=== PATIENT | male | born 1990 | race Caucasian/White ===

== ENCOUNTER 2022-04-25 21:11 | Inpatient (IN) | payer MEDICAID, OTHER ==
[~2022-04-25] VITALS: Ht 177.8 cm; Wt 122.9 kg
[2022-04-25] MEDS ORDERED: ONDANSETRON HCL 4 MG TABLET PO ONE (21:30)
[2022-04-25 21:42] LABS: BASOPHILS % (AUTO) 0.9 % (0.0-2.0); EOSINOPHILS % (AUTO) 2.8 % (1.0-6.0); HEMATOCRIT 37.2 % (41-53); HEMOGLOBIN 12.3 g/dL (13.5-17.5); LYMPHOCYTES # (AUTO) 0.6 K/uL (1.0-4.8); LYMPHOCYTES % (AUTO) 11.1 % (22.0-44.0); MEAN CORPUSCULAR HEMOGLOBIN 28.8 pg (26.0-34.0); MEAN CORPUSCULAR HGB CONC 33.2 G/dL (31.0-37.0); MEAN CORPUSCULAR VOLUME 87 fL (80-100); MONOCYTES # (AUTO) 0.4 K/uL (0.1-1.0); MONOCYTES % (AUTO) 7.2 % (2.0-9.0); NEUTROPHILS # (AUTO) 4.1 K/uL (1.8-7.7); PLATELET COUNT (AUTO) 133 K/uL (150-450); RED BLOOD CELL COUNT(AUTO) 4.29 MIL/uL (4.50-5.90); RED CELL DISTRIBUTION WIDTH 16.1 % (11.5-14.5)
[2022-04-25 21:52] LABS: ANION GAP 10 mmol/L (8-16); CALCIUM, TOTAL 8.9 mg/dL (8.8-10.5); CARBON DIOXIDE 24 mmol/L (22-29); CHLORIDE 106 mmol/L (98-107); CREATININE 0.54 mg/dL (0.60-1.30); GLOMERULAR FILTR. RATE CALC > 60 mL/min (>60); GLUCOSE,RANDOM 109 mg/dL (70-110); POTASSIUM 3.5 mmol/L (3.5-5.1); SODIUM SERUM 140 mmol/L (136-145); UREA NITROGEN, BLOOD 5 mg/dL (7-18)
[2022-04-25 21:58] LABS: ALANINE AMINOTRANSFERASE 36 U/L (12-78); ALBUMIN 3.5 g/dL (3.4-5.0); ALKALINE PHOSPHATASE 80 U/L (46-116); ASPARTATE AMINOTRANSFERASE 56 U/L (15-37); BILIRUBIN,TOTAL 0.8 mg/dL (0.1-1.0); TOTAL PROTEIN, SERUM 7.4 g/dL (6.4-8.2)
[2022-04-25 22:12] LABS: COVID AG,FIA SOURCE NASOPHARYNGEAL
[2022-04-25] MEDS ORDERED: RisperiDONE 1 MG TABLET PO ONE (23:15)
[2022-04-25] MEDS ORDERED: LORazepam 2 MG TABLET PO PRN (23:45)
[2022-04-25] MEDS ORDERED: HALOPERIDOL 5 MG TABLET PO PRN (23:45)
[2022-04-26] VITALS (9 sets, daily range): BP systolic 105–157; BP diastolic 55–89
[2022-04-26] MEDS: ZOLPIDEM TARTRATE 10 MG TABLET PO PRN ×2 (02:40→23:43)
[2022-04-26] MEDS ORDERED: GuaiFENesin/D-METHORPHAN [SUGAR-FREE] 200-20MG/10 ML SYRUP UDCUP PO PRN ×2 (07:45→11:00)
[2022-04-26] MEDS ORDERED: PETROLATUM,WHITE 28 GM JELLY TP PRN (07:45)
[2022-04-26] MEDS ORDERED: IBUPROFEN 400 MG TABLET PO PRN (07:45)
[2022-04-26] MEDS ORDERED: MAGNESIUM HYDROXIDE SUSPENSION 30 ML UDCUP PO PRN (07:45)
[2022-04-26] MEDS ORDERED: LOPERAMIDE HCL 2 MG CAPSULE PO PRN (07:45)
[2022-04-26] MEDS ORDERED: ACETAMINOPHEN 325 MG TABLET PO PRN (07:45)
[2022-04-26] MEDS ORDERED: ALBUTEROL SULFATE HFA 90 MCG/PUFF 8 GM INHALER IH PRN (07:45)
[2022-04-26] MEDS ORDERED: MAG HYDROX/AL HYDROX/SIMETH ES 30 ML SUSPENSION UDCUP PO PRN (07:45)
[2022-04-26] MEDS ORDERED: ONDANSETRON HCL 4 MG TABLET PO PRN (07:45)
[2022-04-26] MEDS ORDERED: DOCUSATE SODIUM 100 MG CAPSULE PO PRN (07:45)
[2022-04-26] MEDS ORDERED: NICOTINE 14 MG/24 HOUR PATCH TD PRN (07:45)
[2022-04-26] MEDS ORDERED: CloNIDine HCL 0.1 MG TABLET PO PRN (07:45)
[2022-04-26] MEDS ORDERED: RISP2TAB45 PO (10:57)
[2022-04-26] MEDS ORDERED: SERT-440 PO (10:57)
[2022-04-26] MEDS ORDERED: CYANOCOBALAMIN 1,000 MCG/ML VIAL IM ONE (11:00)
[2022-04-26] MEDS ORDERED: LORazepam 2 MG TABLET PO PRN (11:00)
[2022-04-26] MEDS ORDERED: HydrOXYzine PAMOATE 50 MG CAPSULE PO PRN (11:00)
[2022-04-26] MEDS: FOLIC ACID 1 MG TABLET PO SCH (12:07)
[2022-04-26] MEDS: MULTIVITAMINS WITH MINERALS, THERAPEUTIC TABLET PO SCH (12:07)
[2022-04-26] MEDS: SERTRALINE HCL 100 MG TABLET PO SCH (12:07)
[2022-04-26] MEDS: TRIAMCINOLONE 0.1% 15 GM CREAM TP SCH (12:53)
[2022-04-26] MEDS: THIAMINE 100 MG TABLET PO SCH (16:13)
[2022-04-26] MEDS: RisperiDONE 2 MG TABLET PO SCH (20:07)
[2022-04-27 02:00] VITALS: BP 144/84
[2022-04-27 06:10] VITALS: BP 144/85
[2022-04-27] MEDS ORDERED: LORazepam 2 MG TABLET PO PRN (07:00)
[2022-04-27 08:52] VITALS: BP 139/75
[2022-04-27] MEDS: LORazepam 2 MG TABLET PO SCH ×4 (08:58→20:19)
[2022-04-27] MEDS: FOLIC ACID 1 MG TABLET PO SCH (08:58)
[2022-04-27] MEDS: THIAMINE 100 MG TABLET PO SCH ×2 (08:59→16:27)
[2022-04-27] MEDS: TRIAMCINOLONE 0.1% 15 GM CREAM TP SCH (08:59)
[2022-04-27] MEDS: SERTRALINE HCL 100 MG TABLET PO SCH (08:59)
[2022-04-27] MEDS: MULTIVITAMINS WITH MINERALS, THERAPEUTIC TABLET PO SCH (08:59)
[2022-04-27 16:30] VITALS: BP 137/75
[2022-04-27] MEDS: RisperiDONE 2 MG TABLET PO SCH (20:19)
[2022-04-27 20:37] VITALS: BP 151/75
[2022-04-27 21:08] VITALS: BP 151/75
[2022-04-28] MEDS: FOLIC ACID 1 MG TABLET PO SCH (08:13)
[2022-04-28] MEDS: SERTRALINE HCL 100 MG TABLET PO SCH (08:13)
[2022-04-28] MEDS: MULTIVITAMINS WITH MINERALS, THERAPEUTIC TABLET PO SCH (08:13)
[2022-04-28] MEDS: LORazepam 2 MG TABLET PO SCH ×2 (08:13→12:28)
[2022-04-28] MEDS: THIAMINE 100 MG TABLET PO SCH (08:13)
[2022-04-28] MEDS: TRIAMCINOLONE 0.1% 15 GM CREAM TP SCH (08:13)
[2022-04-28 08:26] VITALS: BP 121/79
[2022-04-28] MEDS ORDERED: DENTAL PASTE DT PRN (09:45)
[2022-04-28] MEDS ORDERED: TRIAMCINOLONE 0.1% DT PRN (09:45)
[2022-04-28] MEDS ORDERED: RISP2TAB86 PO (11:47)
[2022-04-28] MEDS ORDERED: SERT-440 PO (11:47)
[2022-04-29] MEDS ORDERED: LORazepam 1 MG TABLET PO PRN (07:00)
[2022-04-29] MEDS ORDERED: LORazepam 1 MG TABLET PO SCH (09:00)
[2022-04-30] MEDS ORDERED: LORazepam 1 MG TABLET PO PRN (07:00)
== END 2022-04-28 15:59 | disposition home or self-care (01) | DRG 750 ==
LOC: EMS 21:15 → B2S 04-26 01:04
PROVIDERS: ADMIT Psychiatry & Neurology Psychiatry; ATTEND Psychiatry & Neurology Psychiatry
DX: F25.1 Schizoaffective disorder, depressive type (principal); K57.92 Diverticulitis of intestine, part unspecified, without perforation or abscess without bleeding; K70.30 Alcoholic cirrhosis of liver without ascites; Z20.822 Contact with and (suspected) exposure to COVID-19; F12.10 Cannabis abuse, uncomplicated; L40.9 Psoriasis, unspecified; D64.9 Anemia, unspecified; F17.210 Nicotine dependence, cigarettes, uncomplicated; F10.10 Alcohol abuse, uncomplicated; Y90.9 Presence of alcohol in blood, level not specified; F19.10 Other psychoactive substance abuse, uncomplicated; Z71.6 Tobacco abuse counseling
CPT/HCPCS: 80053; 85025; 87081; 99285; G0480; J3420; Q0162

== ENCOUNTER 2022-05-12 21:14 | Inpatient (IN) | payer MEDICAID ==
[~2022-05-12] VITALS: Ht 177.8 cm; Wt 121.8 kg
[~2022-05-12 21:14] MED LIST: RISP2TAB86 PO; SERT-440 PO
[2022-05-13] MEDS ORDERED: LORazepam 2 MG TABLET PO PRN ×2 (00:15→07:00)
[2022-05-13 00:23] LABS: BASOPHILS % (AUTO) 1.3 % (0.0-2.0); EOSINOPHILS % (AUTO) 3.4 % (1.0-6.0); HEMATOCRIT 40.3 % (41-53); HEMOGLOBIN 13.4 g/dL (13.5-17.5); LYMPHOCYTES # (AUTO) 1.2 K/uL (1.0-4.8); LYMPHOCYTES % (AUTO) 16.3 % (22.0-44.0); MEAN CORPUSCULAR HEMOGLOBIN 28.5 pg (26.0-34.0); MEAN CORPUSCULAR HGB CONC 33.2 G/dL (31.0-37.0); MEAN CORPUSCULAR VOLUME 86 fL (80-100); MONOCYTES # (AUTO) 0.6 K/uL (0.1-1.0); MONOCYTES % (AUTO) 8.2 % (2.0-9.0); NEUTROPHILS # (AUTO) 5.3 K/uL (1.8-7.7); NEUTROPHILS % (AUTO) 70.8 % (40.0-70.0); PLATELET COUNT (AUTO) 146 K/uL (150-450); RED BLOOD CELL COUNT(AUTO) 4.69 MIL/uL (4.50-5.90); RED CELL DISTRIBUTION WIDTH 16.4 % (11.5-14.5)
[2022-05-13 00:35] LABS: ANION GAP 14 mmol/L (8-16); CALCIUM, TOTAL 9.1 mg/dL (8.8-10.5); CARBON DIOXIDE 24 mmol/L (22-29); CHLORIDE 104 mmol/L (98-107); CREATININE 0.59 mg/dL (0.60-1.30); GLUCOSE,RANDOM 112 mg/dL (70-110); POTASSIUM 3.3 mmol/L (3.5-5.1); SODIUM SERUM 142 mmol/L (136-145); UREA NITROGEN, BLOOD 4 mg/dL (7-18)
[2022-05-13 00:41] LABS: GLOMERULAR FILTR. RATE CALC > 60 mL/min (>60)
[2022-05-13 00:47] LABS: COVID AG,FIA SOURCE NASAL SWAB
[2022-05-13 00:52] LABS: ALANINE AMINOTRANSFERASE 46 U/L (12-78); ALBUMIN 3.8 g/dL (3.4-5.0); ALKALINE PHOSPHATASE 103 U/L (46-116); ASPARTATE AMINOTRANSFERASE 70 U/L (15-37); BILIRUBIN,TOTAL 0.9 mg/dL (0.1-1.0); TOTAL PROTEIN, SERUM 7.8 g/dL (6.4-8.2)
[2022-05-13] MEDS ORDERED: POTASSIUM CHLORIDE 20 MEQ ER TABLET PO ONE (01:15)
[2022-05-13 01:30] LABS: APPEARANCE,URINE CLEAR (CLEAR); BILIRUBIN,URINE NEGATIVE (NEGATIVE); GLUCOSE, URINE (UA) NEGATIVE (NEGATIVE); KETONES,URINE NEGATIVE (NEGATIVE); LEUKOCYTE ESTERASE ,URINE TRACE (NEGATIVE); NITRATE,URINE NEGATIVE (NEGATIVE); OCCULT BLOOD,URINE NEGATIVE (NEGATIVE); PH,URINE 7.5 (5.0-8.0); PROTEIN,URINE NEGATIVE (NEGATIVE); SPECIFIC GRAVITIY, URINE 1.009 (1.003-1.030); UROBILINOGEN,URINE <=1.0 mg/dL (<=1.0)
[2022-05-13 01:37] LABS: AMPHET/METH SCREEN,URINE NEGATIVE (NEGATIVE); BARBITURATE SCREEN, URINE NEGATIVE (NEGATIVE); BENZODIAZEPINES SCREEN,URINE POSITIVE (NEGATIVE); CANNABINOID SCREEN,URINE POSITIVE (NEGATIVE); COCAINE SCREEN,URINE NEGATIVE (NEGATIVE); METHADONE SCREEN, URINE NEGATIVE (NEGATIVE); OPIATE SCREEN,URINE NEGATIVE (NEGATIVE)
[2022-05-13 01:48] LABS: PHENCYCLIDINE SCREEN,URINE NEGATIVE (NEGATIVE)
[2022-05-13 02:18] LABS: BACTERIA,URINE None Seen /HPF (None Seen); RBC,URINE None Seen /HPF (0-2); SQUAMOUS EPITHELIAL CELL,UR Few /LPF (None Seen); WBC,URINE 0-2 /HPF (0-5)
[2022-05-13 02:58] VITALS: BP 140/50
[2022-05-13 03:17] VITALS: BP 140/50
[2022-05-13] MEDS ORDERED: GuaiFENesin/D-METHORPHAN [SUGAR-FREE] 200-20MG/10 ML SYRUP UDCUP PO PRN (06:15)
[2022-05-13] MEDS ORDERED: ALBUTEROL SULFATE HFA 90 MCG/PUFF 8 GM INHALER IH PRN (06:15)
[2022-05-13] MEDS ORDERED: ONDANSETRON HCL 4 MG TABLET PO PRN (06:15)
[2022-05-13] MEDS ORDERED: MAGNESIUM HYDROXIDE SUSPENSION 30 ML UDCUP PO PRN (06:15)
[2022-05-13] MEDS ORDERED: PETROLATUM,WHITE 28 GM JELLY TP PRN (06:15)
[2022-05-13] MEDS ORDERED: CloNIDine HCL 0.1 MG TABLET PO PRN (06:15)
[2022-05-13] MEDS ORDERED: LOPERAMIDE HCL 2 MG CAPSULE PO PRN (06:15)
[2022-05-13] MEDS ORDERED: DOCUSATE SODIUM 100 MG CAPSULE PO PRN (06:15)
[2022-05-13] MEDS ORDERED: NICOTINE 14 MG/24 HOUR PATCH TD PRN (06:15)
[2022-05-13] MEDS ORDERED: ACETAMINOPHEN 325 MG TABLET PO PRN (06:15)
[2022-05-13] MEDS ORDERED: MAG HYDROX/AL HYDROX/SIMETH ES 30 ML SUSPENSION UDCUP PO PRN (06:15)
[2022-05-13] MEDS: LORazepam 2 MG TABLET PO SCH ×5 (09:00→20:45)
[2022-05-13 09:01] VITALS: BP 157/91
[2022-05-13] MEDS: SERTRALINE HCL 50 MG TABLET PO SCH ×2 (11:42→16:32)
[2022-05-13] MEDS: RisperiDONE 2 MG TABLET PO SCH (11:42)
[2022-05-13 16:20] VITALS: BP 134/81
[2022-05-13] MEDS: HALOPERIDOL 5 MG TABLET PO PRN (20:45)
[2022-05-14 08:00] VITALS: BP 166/96
[2022-05-14] MEDS: SERTRALINE HCL 50 MG TABLET PO SCH ×2 (08:51→17:05)
[2022-05-14] MEDS: FOLIC ACID 1 MG TABLET PO SCH (08:51)
[2022-05-14] MEDS: MULTIVITAMINS, THERAPEUTIC TABLET PO SCH (08:51)
[2022-05-14] MEDS: THIAMINE 100 MG TABLET PO SCH (08:51)
[2022-05-14] MEDS: RisperiDONE 2 MG TABLET PO SCH (08:51)
[2022-05-14] MEDS: LORazepam 2 MG TABLET PO SCH ×4 (08:52→20:31)
[2022-05-14 16:00] VITALS: BP 126/68
[2022-05-14] MEDS: ZOLPIDEM TARTRATE 10 MG TABLET PO PRN (23:08)
[2022-05-14] MEDS: HYDROCORTISONE 1% 30 GM OINTMENT TP PRN (23:14)
[2022-05-15] MEDS ORDERED: LORazepam 1 MG TABLET PO PRN (07:00)
[2022-05-15] MEDS: PredniSONE 20 MG TABLET PO SCH (09:24)
[2022-05-15] MEDS: FOLIC ACID 1 MG TABLET PO SCH (09:24)
[2022-05-15] MEDS: LORazepam 1 MG TABLET PO SCH ×4 (09:24→20:38)
[2022-05-15] MEDS: SERTRALINE HCL 50 MG TABLET PO SCH ×2 (09:24→16:48)
[2022-05-15] MEDS: RisperiDONE 2 MG TABLET PO SCH (09:24)
[2022-05-15] MEDS: THIAMINE 100 MG TABLET PO SCH (09:24)
[2022-05-15] MEDS: MULTIVITAMINS, THERAPEUTIC TABLET PO SCH (09:24)
[2022-05-15 09:32] VITALS: BP 152/85
[2022-05-15] MEDS: IBUPROFEN 400 MG TABLET PO PRN ×2 (09:35→20:52)
[2022-05-15] MEDS: HYDROCORTISONE 1% 30 GM OINTMENT TP PRN (09:35)
[2022-05-15 16:00] VITALS: BP 125/68
[2022-05-15 20:26] VITALS: BP 121/60
[2022-05-15] MEDS: ZOLPIDEM TARTRATE 10 MG TABLET PO PRN (23:52)
[2022-05-16] MEDS: HALOPERIDOL 5 MG TABLET PO PRN (01:08)
[2022-05-16] MEDS ORDERED: LORazepam 1 MG TABLET PO PRN (07:00)
[2022-05-16 08:00] VITALS: BP 132/82
[2022-05-16] MEDS: SERTRALINE HCL 50 MG TABLET PO SCH ×2 (08:25→16:40)
[2022-05-16] MEDS: MULTIVITAMINS, THERAPEUTIC TABLET PO SCH (08:25)
[2022-05-16] MEDS: PredniSONE 20 MG TABLET PO SCH (08:25)
[2022-05-16] MEDS: RisperiDONE 2 MG TABLET PO SCH (08:25)
[2022-05-16] MEDS: THIAMINE 100 MG TABLET PO SCH (08:25)
[2022-05-16] MEDS: FOLIC ACID 1 MG TABLET PO SCH (08:26)
[2022-05-16 16:00] VITALS: BP 141/82
[2022-05-16 20:52] VITALS: BP 138/74
[2022-05-16] MEDS: ZOLPIDEM TARTRATE 10 MG TABLET PO PRN (22:40)
[2022-05-17 09:00] VITALS: BP 134/81
[2022-05-17] MEDS: THIAMINE 100 MG TABLET PO SCH (09:21)
[2022-05-17] MEDS: MULTIVITAMINS, THERAPEUTIC TABLET PO SCH (09:22)
[2022-05-17] MEDS: RisperiDONE 2 MG TABLET PO SCH (09:22)
[2022-05-17] MEDS: FOLIC ACID 1 MG TABLET PO SCH (09:22)
[2022-05-17] MEDS: PredniSONE 20 MG TABLET PO SCH (09:22)
[2022-05-17] MEDS: SERTRALINE HCL 50 MG TABLET PO SCH (09:22)
[2022-05-17] MEDS ORDERED: RISP2TAB86 PO (10:46)
[2022-05-17] MEDS ORDERED: SERT-439 PO (10:46)
[2022-05-17] MEDS ORDERED: MUPIROCIN CALCIUM 2% 22 GM OINTMENT NASAL SCH (11:00)
== END 2022-05-17 14:08 | disposition home or self-care (01) | DRG 751 ==
LOC: EMS 22:04 → 3EI 05-13 01:51
PROVIDERS: ADMIT Psychiatry & Neurology Child & Adolescent Psychiatry; ATTEND Psychiatry & Neurology Child & Adolescent Psychiatry
DX: F33.2 Major depressive disorder, recurrent severe without psychotic features (principal); K74.60 Unspecified cirrhosis of liver; R45.851 Suicidal ideations; K57.92 Diverticulitis of intestine, part unspecified, without perforation or abscess without bleeding; Z20.822 Contact with and (suspected) exposure to COVID-19; L40.9 Psoriasis, unspecified; E87.6 Hypokalemia; F10.10 Alcohol abuse, uncomplicated; Y90.9 Presence of alcohol in blood, level not specified; F20.9 Schizophrenia, unspecified; D64.9 Anemia, unspecified; F19.10 Other psychoactive substance abuse, uncomplicated; F12.10 Cannabis abuse, uncomplicated; R45.850 Homicidal ideations; Z87.891 Personal history of nicotine dependence; Z91.14 Patient's other noncompliance with medication regimen
CPT/HCPCS: 80053; 81001; 83036; 84132; 85025; 87081; 99285; G0480

== ENCOUNTER 2022-05-25 23:36 | Inpatient (IN) | payer MEDICAID, OTHER ==
[~2022-05-25] VITALS: Ht 177.8 cm; Wt 122.5 kg
[~2022-05-25 23:36] MED LIST changes: +SERT-439 PO
[2022-05-26] MEDS ORDERED: BACITRACIN 28 GM OINTMENT TP ONE (01:15)
[2022-05-26] MEDS ORDERED: PERTUSS(ACELL),DIPH,TET VAC/PF 0.5 ML SYRINGE IM. ONE (01:15)
[2022-05-26 01:44] LABS: ANION GAP 11 mmol/L (8-16); BASOPHILS % (AUTO) 0.9 % (0.0-2.0); CALCIUM, TOTAL 8.3 mg/dL (8.8-10.5); CARBON DIOXIDE 24 mmol/L (22-29); CHLORIDE 107 mmol/L (98-107); CREATININE 0.73 mg/dL (0.60-1.30); EOSINOPHILS % (AUTO) 3.4 % (1.0-6.0); GLUCOSE,RANDOM 99 mg/dL (70-110); HEMATOCRIT 40.6 % (41-53); HEMOGLOBIN 13.5 g/dL (13.5-17.5); LYMPHOCYTES # (AUTO) 1.4 K/uL (1.0-4.8); LYMPHOCYTES % (AUTO) 15.9 % (22.0-44.0); MEAN CORPUSCULAR HEMOGLOBIN 28.6 pg (26.0-34.0); MEAN CORPUSCULAR HGB CONC 33.3 G/dL (31.0-37.0); MEAN CORPUSCULAR VOLUME 86 fL (80-100); MONOCYTES # (AUTO) 0.7 K/uL (0.1-1.0); MONOCYTES % (AUTO) 8.1 % (2.0-9.0); NEUTROPHILS # (AUTO) 6.5 K/uL (1.8-7.7); NEUTROPHILS % (AUTO) 71.7 % (40.0-70.0); PLATELET COUNT (AUTO) 152 K/uL (150-450); POTASSIUM 3.2 mmol/L (3.5-5.1); RED BLOOD CELL COUNT(AUTO) 4.72 MIL/uL (4.50-5.90); RED CELL DISTRIBUTION WIDTH 17.5 % (11.5-14.5); SODIUM SERUM 142 mmol/L (136-145); UREA NITROGEN, BLOOD 1 mg/dL (7-18)
[2022-05-26 01:47] LABS: GLOMERULAR FILTR. RATE CALC > 60 mL/min (>60)
[2022-05-26 01:49] LABS: ALANINE AMINOTRANSFERASE 34 U/L (12-78); ALBUMIN 3.7 g/dL (3.4-5.0); ALKALINE PHOSPHATASE 80 U/L (46-116); ASPARTATE AMINOTRANSFERASE 31 U/L (15-37); BILIRUBIN,TOTAL 0.7 mg/dL (0.1-1.0); TOTAL PROTEIN, SERUM 7.8 g/dL (6.4-8.2)
[2022-05-26] MEDS ORDERED: LORazepam 1 MG TABLET PO ONE (02:00)
[2022-05-26] MEDS ORDERED: RisperiDONE 1 MG TABLET PO ONE (02:00)
[2022-05-26] MEDS ORDERED: HALOPERIDOL 5 MG TABLET PO PRN (03:45)
[2022-05-26] MEDS ORDERED: POTASSIUM CHLORIDE 20 MEQ ER TABLET PO ONE (04:00)
[2022-05-26 04:07] LABS: COVID AG,FIA SOURCE NASOPHARYNGEAL
[2022-05-26 05:31] VITALS: BP 129/80
[2022-05-26] MEDS: NICOTINE 14 MG/24 HOUR PATCH TD SCH (09:29)
[2022-05-26] MEDS: RisperiDONE 2 MG TABLET PO SCH (13:28)
[2022-05-26] MEDS: SERTRALINE HCL 50 MG TABLET PO SCH (13:29)
[2022-05-26] MEDS ORDERED: LOPERAMIDE HCL 2 MG CAPSULE PO PRN (14:00)
[2022-05-26] MEDS ORDERED: GuaiFENesin/D-METHORPHAN [SUGAR-FREE] 200-20MG/10 ML SYRUP UDCUP PO PRN (14:00)
[2022-05-26] MEDS ORDERED: ACETAMINOPHEN 325 MG TABLET PO PRN (14:00)
[2022-05-26] MEDS ORDERED: DOCUSATE SODIUM 100 MG CAPSULE PO PRN (14:00)
[2022-05-26] MEDS ORDERED: NICOTINE 14 MG/24 HOUR PATCH TD PRN (14:00)
[2022-05-26] MEDS ORDERED: PETROLATUM,WHITE 28 GM JELLY TP PRN (14:00)
[2022-05-26] MEDS ORDERED: ONDANSETRON HCL 4 MG TABLET PO PRN (14:00)
[2022-05-26] MEDS ORDERED: MAGNESIUM HYDROXIDE SUSPENSION 30 ML UDCUP PO PRN (14:00)
[2022-05-26] MEDS ORDERED: CloNIDine HCL 0.1 MG TABLET PO PRN (14:00)
[2022-05-26] MEDS ORDERED: ALBUTEROL SULFATE HFA 90 MCG/PUFF 8 GM INHALER IH PRN (14:00)
[2022-05-26] MEDS ORDERED: MAG HYDROX/AL HYDROX/SIMETH ES 30 ML SUSPENSION UDCUP PO PRN (14:00)
[2022-05-26 17:01] VITALS: BP 117/71
[2022-05-26] MEDS: ZOLPIDEM TARTRATE 10 MG TABLET PO PRN (23:26)
[2022-05-27 07:50] LABS: BASOPHILS % (AUTO) 2.1 % (0.0-2.0); EOSINOPHILS % (AUTO) 4.9 % (1.0-6.0); HEMATOCRIT 38.4 % (41-53); LYMPHOCYTES # (AUTO) 1.1 K/uL (1.0-4.8); MEAN CORPUSCULAR HEMOGLOBIN 28.8 pg (26.0-34.0); MEAN CORPUSCULAR HGB CONC 33.7 G/dL (31.0-37.0); MEAN CORPUSCULAR VOLUME 85 fL (80-100); MONOCYTES # (AUTO) 0.6 K/uL (0.1-1.0); PLATELET COUNT (AUTO) 133 K/uL (150-450)
[2022-05-27 08:26] LABS: ALANINE AMINOTRANSFERASE 26 U/L (12-78); ALBUMIN 3.4 g/dL (3.4-5.0); ALKALINE PHOSPHATASE 73 U/L (46-116); ANION GAP 9 mmol/L (8-16); ASPARTATE AMINOTRANSFERASE 28 U/L (15-37); BILIRUBIN,TOTAL 1.2 mg/dL (0.1-1.0); CARBON DIOXIDE 25 mmol/L (22-29); CHLORIDE 105 mmol/L (98-107); CHOL/HDL RATIO 3.8 (4.2-7.3); CHOLESTEROL 147 mg/dL (131-200); CREATININE 0.75 mg/dL (0.60-1.30); GLUCOSE,RANDOM 110 mg/dL (70-110); HDL CHOLESTEROL 39 mg/dL (40-60); LDL CHOL (CALC.) 82 mg/dL (0-130); POTASSIUM 3.5 mmol/L (3.5-5.1); SODIUM SERUM 139 mmol/L (136-145); THYROID STIMULATING HORMONE 3.39 uIU/mL (0.36-3.74); TRIGLYCERIDES 129 mg/dL (15-150); UREA NITROGEN, BLOOD 7 mg/dL (7-18)
[2022-05-27 08:30] VITALS: BP 133/76
[2022-05-27 08:33] LABS: GLOMERULAR FILTR. RATE CALC > 60 mL/min (>60)
[2022-05-27 08:40] LABS: HEMOGLOBIN A1C 5.2 % (3.8-5.6)
[2022-05-27] MEDS: SERTRALINE HCL 50 MG TABLET PO SCH (09:00)
[2022-05-27] MEDS: RisperiDONE 2 MG TABLET PO SCH (09:00)
[2022-05-27] MEDS: NICOTINE 14 MG/24 HOUR PATCH TD SCH (09:04)
[2022-05-27 16:24] VITALS: BP 159/93
[2022-05-27] MEDS: MUPIROCIN CALCIUM 2% 22 GM OINTMENT TP SCH (16:42)
[2022-05-27] MEDS: HYDROCORTISONE 1% 30 GM OINTMENT TP SCH (21:22)
[2022-05-27] MEDS: ZOLPIDEM TARTRATE 10 MG TABLET PO PRN (22:46)
[2022-05-27] MEDS: HydrOXYzine HCL 10 MG TABLET PO PRN (22:46)
[2022-05-27 23:50] VITALS: BP 135/81
[2022-05-27] MEDS: IBUPROFEN 400 MG TABLET PO PRN (23:50)
[2022-05-28] MEDS: SERTRALINE HCL 50 MG TABLET PO SCH (09:08)
[2022-05-28] MEDS: HydrOXYzine HCL 10 MG TABLET PO PRN (09:08)
[2022-05-28] MEDS: MUPIROCIN CALCIUM 2% 22 GM OINTMENT TP SCH ×2 (09:08→16:30)
[2022-05-28] MEDS: HYDROCORTISONE 1% 30 GM OINTMENT TP SCH ×2 (09:08→16:29)
[2022-05-28] MEDS: RisperiDONE 2 MG TABLET PO SCH (09:08)
[2022-05-28] MEDS: NICOTINE 14 MG/24 HOUR PATCH TD SCH (09:09)
[2022-05-28 09:15] VITALS: BP 151/86
[2022-05-28 11:25] LABS: APPEARANCE,URINE CLEAR (CLEAR); BILIRUBIN,URINE NEGATIVE (NEGATIVE); GLUCOSE, URINE (UA) NEGATIVE (NEGATIVE); KETONES,URINE NEGATIVE (NEGATIVE); LEUKOCYTE ESTERASE ,URINE TRACE (NEGATIVE); NITRATE,URINE NEGATIVE (NEGATIVE); OCCULT BLOOD,URINE NEGATIVE (NEGATIVE); PROTEIN,URINE NEGATIVE (NEGATIVE); UROBILINOGEN,URINE <=1.0 mg/dL (<=1.0)
[2022-05-28 11:48] LABS: AMPHET/METH SCREEN,URINE NEGATIVE (NEGATIVE); BARBITURATE SCREEN, URINE NEGATIVE (NEGATIVE); BENZODIAZEPINES SCREEN,URINE POSITIVE (NEGATIVE); CANNABINOID SCREEN,URINE POSITIVE (NEGATIVE); COCAINE SCREEN,URINE NEGATIVE (NEGATIVE); METHADONE SCREEN, URINE NEGATIVE (NEGATIVE); OPIATE SCREEN,URINE NEGATIVE (NEGATIVE)
[2022-05-28 11:50] LABS: BACTERIA,URINE None Seen /HPF (None Seen); RBC,URINE None Seen /HPF (0-2); SQUAMOUS EPITHELIAL CELL,UR Few /LPF (None Seen); WBC,URINE 0-2 /HPF (0-5)
[2022-05-28] MEDS: LORazepam 2 MG TABLET PO PRN ×2 (11:54→16:44)
[2022-05-28 11:57] LABS: PHENCYCLIDINE SCREEN,URINE NEGATIVE (NEGATIVE)
[2022-05-28 16:10] VITALS: BP 155/84
[2022-05-28] MEDS: ZOLPIDEM TARTRATE 10 MG TABLET PO PRN (21:43)
[2022-05-29] MEDS: LORazepam 2 MG TABLET PO PRN ×4 (00:06→20:23)
[2022-05-29 00:09] VITALS: BP 138/79
[2022-05-29 08:00] VITALS: BP 156/104
[2022-05-29] MEDS: NICOTINE 14 MG/24 HOUR PATCH TD SCH (08:17)
[2022-05-29] MEDS: SERTRALINE HCL 50 MG TABLET PO SCH (08:17)
[2022-05-29] MEDS: RisperiDONE 2 MG TABLET PO SCH (08:17)
[2022-05-29] MEDS: HydrOXYzine HCL 10 MG TABLET PO PRN (08:19)
[2022-05-29] MEDS: HYDROCORTISONE 1% 30 GM OINTMENT TP SCH ×2 (09:19→16:14)
[2022-05-29] MEDS: MUPIROCIN CALCIUM 2% 22 GM OINTMENT TP SCH ×2 (09:19→16:14)
[2022-05-29 20:20] VITALS: BP 136/88
[2022-05-29] MEDS: IBUPROFEN 400 MG TABLET PO PRN (20:24)
[2022-05-29 20:38] VITALS: BP 115/75
[2022-05-29] MEDS: ZOLPIDEM TARTRATE 10 MG TABLET PO PRN (22:07)
[2022-05-30 07:37] VITALS: BP 155/93
[2022-05-30] MEDS: LORazepam 2 MG TABLET PO PRN ×3 (07:40→20:57)
[2022-05-30] MEDS: RisperiDONE 2 MG TABLET PO SCH (09:13)
[2022-05-30] MEDS: HYDROCORTISONE 1% 30 GM OINTMENT TP SCH ×2 (09:13→17:00)
[2022-05-30] MEDS: NICOTINE 14 MG/24 HOUR PATCH TD SCH (09:14)
[2022-05-30] MEDS: SERTRALINE HCL 50 MG TABLET PO SCH (09:15)
[2022-05-30] MEDS: HydrOXYzine HCL 10 MG TABLET PO PRN (09:18)
[2022-05-30] MEDS: IBUPROFEN 400 MG TABLET PO PRN ×2 (09:18→20:57)
[2022-05-30 09:21] VITALS: BP 155/93
[2022-05-30 10:22] VITALS: BP 149/86
[2022-05-30] MEDS: MUPIROCIN CALCIUM 2% 22 GM OINTMENT TP SCH ×2 (12:01→17:00)
[2022-05-30 16:29] VITALS: BP 135/80
[2022-05-30 20:58] VITALS: BP 133/79
[2022-05-30] MEDS: ZOLPIDEM TARTRATE 10 MG TABLET PO PRN (22:28)
[2022-05-31 08:00] VITALS: BP 135/82
[2022-05-31] MEDS: HydrOXYzine HCL 10 MG TABLET PO PRN (08:37)
[2022-05-31] MEDS: SERTRALINE HCL 50 MG TABLET PO SCH (08:37)
[2022-05-31] MEDS: NICOTINE 14 MG/24 HOUR PATCH TD SCH (08:39)
[2022-05-31] MEDS: LORazepam 2 MG TABLET PO PRN ×3 (08:43→21:17)
[2022-05-31] MEDS: RisperiDONE 2 MG TABLET PO SCH (08:43)
[2022-05-31] MEDS: MUPIROCIN CALCIUM 2% 22 GM OINTMENT TP SCH ×2 (09:00→16:46)
[2022-05-31] MEDS: HYDROCORTISONE 1% 30 GM OINTMENT TP SCH ×2 (09:00→16:47)
[2022-05-31 15:53] VITALS: BP 143/86
[2022-05-31 16:00] VITALS: BP 143/86
[2022-05-31 20:15] VITALS: BP 138/79
[2022-05-31] MEDS: IBUPROFEN 400 MG TABLET PO PRN (20:15)
[2022-05-31 21:17] VITALS: BP 142/89
[2022-05-31] MEDS: ZOLPIDEM TARTRATE 10 MG TABLET PO PRN (23:06)
[2022-06-01 06:24] LABS: COVID AG,FIA SOURCE NASAL SWAB
[2022-06-01] MEDS: RisperiDONE 2 MG TABLET PO SCH (08:13)
[2022-06-01] MEDS: SERTRALINE HCL 50 MG TABLET PO SCH (08:13)
[2022-06-01] MEDS: MUPIROCIN CALCIUM 2% 22 GM OINTMENT TP SCH (08:14)
[2022-06-01] MEDS: NICOTINE 14 MG/24 HOUR PATCH TD SCH (08:14)
[2022-06-01] MEDS: LORazepam 2 MG TABLET PO PRN (08:14)
[2022-06-01] MEDS: HYDROCORTISONE 1% 30 GM OINTMENT TP SCH (08:15)
[2022-06-01 08:21] VITALS: BP 101/72
[2022-06-01] MEDS: HydrOXYzine HCL 10 MG TABLET PO PRN (10:55)
[2022-06-01] MEDS ORDERED: RISP2TAB86 PO (11:28)
[2022-06-01] MEDS ORDERED: SERT-439 PO (11:28)
== END 2022-06-01 15:05 | disposition home or self-care (01) | DRG 750 ==
LOC: EMS 23:37 → 3EI 05-26 04:58
PROVIDERS: ADMIT Psychiatry & Neurology Child & Adolescent Psychiatry; ATTEND Psychiatry & Neurology Child & Adolescent Psychiatry
DX: F25.1 Schizoaffective disorder, depressive type (principal); R45.851 Suicidal ideations; K74.60 Unspecified cirrhosis of liver; E66.01 Morbid (severe) obesity due to excess calories; Z20.822 Contact with and (suspected) exposure to COVID-19; F10.20 Alcohol dependence, uncomplicated; E87.6 Hypokalemia; X78.8XXA Intentional self-harm by other sharp object, initial encounter; F84.0 Autistic disorder; F12.10 Cannabis abuse, uncomplicated; F17.210 Nicotine dependence, cigarettes, uncomplicated; L40.9 Psoriasis, unspecified; S51.812A Laceration without foreign body of left forearm, initial encounter; Z59.00 Homelessness unspecified; Z68.38 Body mass index [BMI] 38.0-38.9, adult; Z79.899 Other long term (current) drug therapy; Y93.89 Activity, other specified; Y92.89 Other specified places as the place of occurrence of the external cause; Y99.8 Other external cause status
CPT/HCPCS: 80053; 80061; 80307; 81001; 83036; 84443; 85025; 87081; 99285; G0480; Q0162

== ENCOUNTER 2022-06-04 22:09 | Inpatient (IN) | payer MEDICAID, OTHER ==
[~2022-06-04] VITALS: Ht 177.8 cm; Wt 125.6 kg
[~2022-06-04 22:09] MED LIST changes: -SERT-440 PO
[2022-06-04] MEDS ORDERED: SODIUM CHLORIDE 0.9% 1,000 ML IV ONE (23:00)
[2022-06-04 23:34] LABS: BASOPHILS % (AUTO) 1.2 % (0.0-2.0); EOSINOPHILS % (AUTO) 3.8 % (1.0-6.0); HEMATOCRIT 38.8 % (41-53); LYMPHOCYTES % (AUTO) 15.3 % (22.0-44.0); MEAN CORPUSCULAR HEMOGLOBIN 28.8 pg (26.0-34.0); MEAN CORPUSCULAR HGB CONC 33.4 G/dL (31.0-37.0); MEAN CORPUSCULAR VOLUME 86 fL (80-100); MONOCYTES # (AUTO) 0.6 K/uL (0.1-1.0); NEUTROPHILS # (AUTO) 4.7 K/uL (1.8-7.7); NEUTROPHILS % (AUTO) 70.7 % (40.0-70.0); PLATELET COUNT (AUTO) 130 K/uL (150-450); RED CELL DISTRIBUTION WIDTH 17.7 % (11.5-14.5)
[2022-06-04 23:38] LABS: ANION GAP 12 mmol/L (8-16); CALCIUM, TOTAL 8.3 mg/dL (8.8-10.5); CARBON DIOXIDE 26 mmol/L (22-29); CHLORIDE 103 mmol/L (98-107); GLOMERULAR FILTR. RATE CALC > 60 mL/min (>60); GLUCOSE,RANDOM 124 mg/dL (70-110); POTASSIUM 3.1 mmol/L (3.5-5.1); SODIUM SERUM 141 mmol/L (136-145); UREA NITROGEN, BLOOD 4 mg/dL (7-18)
[2022-06-04 23:44] LABS: ALANINE AMINOTRANSFERASE 40 U/L (12-78); ALBUMIN 3.7 g/dL (3.4-5.0); ALKALINE PHOSPHATASE 86 U/L (46-116); ASPARTATE AMINOTRANSFERASE 34 U/L (15-37); BILIRUBIN,TOTAL 0.6 mg/dL (0.1-1.0); TOTAL PROTEIN, SERUM 7.1 g/dL (6.4-8.2)
[2022-06-04 23:49] LABS: INR 1.1 (0.9-1.1); PROTHROMBIN TIME 11.7 SEC (9.4-11.6)
[2022-06-04 23:51] LABS: LACTIC ACID 2.1 mmol/L (0.4-2.0)
[2022-06-05] MEDS ORDERED: POTASSIUM CHLORIDE 20 MEQ ER TABLET PO ONE (00:15)
[2022-06-05] MEDS ORDERED: SODIUM CHLORIDE 0.9% 100 ML ONE (00:41)
[2022-06-05] MEDS ORDERED: IOHEXOL 350 MG/ML 100 ML VIAL ONE (00:42)
[2022-06-05] MEDS ORDERED: SODIUM CHLORIDE 0.9% 1,000 ML IV ONE (01:00)
[2022-06-05 01:01] LABS: APPEARANCE,URINE HAZY (CLEAR); BILIRUBIN,URINE NEGATIVE (NEGATIVE); GLUCOSE, URINE (UA) NEGATIVE (NEGATIVE); KETONES,URINE NEGATIVE (NEGATIVE); LEUKOCYTE ESTERASE ,URINE NEGATIVE (NEGATIVE); NITRATE,URINE NEGATIVE (NEGATIVE); OCCULT BLOOD,URINE NEGATIVE (NEGATIVE); PROTEIN,URINE NEGATIVE (NEGATIVE); SPECIFIC GRAVITIY, URINE 1.011 (1.003-1.030); UROBILINOGEN,URINE <=1.0 mg/dL (<=1.0)
[2022-06-05] MEDS ORDERED: MORPHINE SULFATE 4 MG/ML SYRINGE IVP ONE (01:45)
[2022-06-05 02:26] LABS: COVID AG,FIA SOURCE NASAL SWAB
[2022-06-05] MEDS ORDERED: PIPERACILLIN SODIUM/TAZOBACTAM 4.5 GM in DEXTROSE 5%-WATER 100 ML IV ONE (02:30)
[2022-06-05] MEDS ORDERED: SERTRALINE HCL 50 MG TABLET PO ONE (03:45)
[2022-06-05] MEDS ORDERED: SODIUM CHLORIDE 0.9% 1,000 ML IV SCH (03:45)
[2022-06-05] MEDS: ONDANSETRON HCL 4 MG/2 ML VIAL IVP PRN (04:25)
[2022-06-05] MEDS ORDERED: SODIUM CHLORIDE 0.9% 250 ML IV ONE (04:58)
[2022-06-05] MEDS ORDERED: AZITHROMYCIN 500 MG/NS 250 ML IV SCH (05:00)
[2022-06-05] MEDS: MetroNIDAZOLE 500 MG TABLET PO SCH ×3 (05:16→20:19)
[2022-06-05] MEDS: ACETAMINOPHEN 325 MG TABLET PO PRN ×2 (05:17→20:19)
[2022-06-05 05:46] VITALS: BP 138/86
[2022-06-05] MEDS: MORPHINE SULFATE 2 MG/ML SYRINGE IVP PRN ×3 (06:26→18:13)
[2022-06-05] MEDS: LORazepam 2 MG TABLET PO PRN ×3 (06:32→23:21)
[2022-06-05] MEDS: MAGNESIUM SULFATE 2 GM, MVI, ADULT NO.1 WITH VIT K 10 ML, THIAMINE 100 MG, FOLIC ACID 1... IV SCH ×5 (06:35)
[2022-06-05] MEDS ORDERED: AMPICILLIN SODIUM/SULBACTAM NA 1.5 GM in SODIUM CHLORIDE 0.9% 50 ML IV SCH (08:00)
[2022-06-05] MEDS ORDERED: CefTRIAXone 1 GM/DEXTROSE 50 ML IV SCH (08:00)
[2022-06-05] MEDS: HEPARIN SODIUM,PORCINE 5,000 UNITS/ML VIAL SQ SCH ×3 (09:30→23:21)
[2022-06-05 11:10] VITALS: BP 139/69
[2022-06-05 11:19] VITALS: BP 139/69
[2022-06-05] MEDS: PIPERACILLIN/TAZO 3.375 GM/D5W 50 ML IV SCH ×3 (12:59→23:21)
[2022-06-05 19:53] VITALS: BP 141/82
[2022-06-05] MEDS: MELATONIN 3 MG TABLET PO SCH (20:19)
[2022-06-06] MEDS ORDERED: DiphenhydrAMINE/ZINC ACET 30 GM CREAM TP PRN (03:00)
[2022-06-06] MEDS: MAGNESIUM SULFATE 2 GM, MVI, ADULT NO.1 WITH VIT K 10 ML, THIAMINE 100 MG, FOLIC ACID 1... IV SCH ×10 (03:01→22:23)
[2022-06-06] MEDS: DiphenhydrAMINE HCL 25 MG CAPSULE PO PRN ×2 (03:25→14:17)
[2022-06-06 03:37] VITALS: BP 134/80
[2022-06-06] MEDS: PIPERACILLIN/TAZO 3.375 GM/D5W 50 ML IV SCH ×3 (05:59→17:02)
[2022-06-06] MEDS ORDERED: LORazepam 2 MG TABLET PO PRN (07:00)
[2022-06-06 08:09] LABS: BASOPHILS % (AUTO) 1.3 % (0.0-2.0); EOSINOPHILS % (AUTO) 7.1 % (1.0-6.0); HEMOGLOBIN 11.7 g/dL (13.5-17.5); LYMPHOCYTES # (AUTO) 0.6 K/uL (1.0-4.8); LYMPHOCYTES % (AUTO) 16.6 % (22.0-44.0); MEAN CORPUSCULAR HEMOGLOBIN 29.1 pg (26.0-34.0); MEAN CORPUSCULAR HGB CONC 33.5 G/dL (31.0-37.0); MEAN CORPUSCULAR VOLUME 87 fL (80-100); MONOCYTES # (AUTO) 0.3 K/uL (0.1-1.0); MONOCYTES % (AUTO) 8.9 % (2.0-9.0); NEUTROPHILS # (AUTO) 2.5 K/uL (1.8-7.7); NEUTROPHILS % (AUTO) 66.1 % (40.0-70.0); RED BLOOD CELL COUNT(AUTO) 4.03 MIL/uL (4.50-5.90); RED CELL DISTRIBUTION WIDTH 17.3 % (11.5-14.5)
[2022-06-06 08:15] VITALS: BP 130/79
[2022-06-06 08:23] LABS: ANION GAP 6 mmol/L (8-16); CALCIUM, TOTAL 7.8 mg/dL (8.8-10.5); CARBON DIOXIDE 26 mmol/L (22-29); CHLORIDE 105 mmol/L (98-107); CREATININE 0.53 mg/dL (0.60-1.30); GLUCOSE,RANDOM 88 mg/dL (70-110); POTASSIUM 3.8 mmol/L (3.5-5.1); SODIUM SERUM 137 mmol/L (136-145); UREA NITROGEN, BLOOD 4 mg/dL (7-18)
[2022-06-06] MEDS: MetroNIDAZOLE 500 MG TABLET PO SCH ×3 (08:25→20:17)
[2022-06-06] MEDS: LORazepam 2 MG TABLET PO SCH ×4 (08:25→20:17)
[2022-06-06] MEDS: HEPARIN SODIUM,PORCINE 5,000 UNITS/ML VIAL SQ SCH ×2 (08:25→16:19)
[2022-06-06 08:26] LABS: GLOMERULAR FILTR. RATE CALC > 60 mL/min (>60)
[2022-06-06] MEDS: MORPHINE SULFATE 2 MG/ML SYRINGE IVP PRN ×3 (08:26→22:41)
[2022-06-06 09:28] LABS: PLATELET COUNT (AUTO) 89 K/uL (150-450)
[2022-06-06 16:00] VITALS: BP 120/71
[2022-06-06 19:24] VITALS: BP 126/81
[2022-06-06] MEDS: MELATONIN 3 MG TABLET PO SCH (20:17)
[2022-06-06] MEDS: ONDANSETRON HCL 4 MG/2 ML VIAL IVP PRN (22:41)
[2022-06-07] MEDS: HEPARIN SODIUM,PORCINE 5,000 UNITS/ML VIAL SQ SCH ×4 (00:42→23:55)
[2022-06-07] MEDS: PIPERACILLIN/TAZO 3.375 GM/D5W 50 ML IV SCH ×2 (00:43→06:15)
[2022-06-07 04:13] VITALS: BP 122/71
[2022-06-07] MEDS: MORPHINE SULFATE 2 MG/ML SYRINGE IVP PRN (06:15)
[2022-06-07 06:24] VITALS: BP 122/71
[2022-06-07 07:49] VITALS: BP 141/86
[2022-06-07] MEDS: LORazepam 2 MG TABLET PO SCH (08:15)
[2022-06-07] MEDS: MetroNIDAZOLE 500 MG TABLET PO SCH ×3 (08:15→20:10)
[2022-06-07] MEDS: SERTRALINE HCL 50 MG TABLET PO SCH (11:33)
[2022-06-07] MEDS: CIPROFLOXACIN HCL 500 MG TABLET PO SCH ×2 (11:34→20:10)
[2022-06-07 15:09] VITALS: BP 135/70
[2022-06-07 19:54] VITALS: BP 114/63
[2022-06-07] MEDS: MELATONIN 3 MG TABLET PO SCH (20:10)
[2022-06-07] MEDS: ONDANSETRON HCL 4 MG/2 ML VIAL IVP PRN (23:55)
[2022-06-08] MEDS: ACETAMINOPHEN 325 MG TABLET PO PRN (00:02)
[2022-06-08] MEDS ORDERED: LORazepam 1 MG TABLET PO PRN (07:00)
[2022-06-08 07:24] VITALS: BP 127/81
[2022-06-08] MEDS: CIPROFLOXACIN HCL 500 MG TABLET PO SCH (08:56)
[2022-06-08] MEDS: SERTRALINE HCL 50 MG TABLET PO SCH (08:56)
[2022-06-08] MEDS: MetroNIDAZOLE 500 MG TABLET PO SCH (08:56)
[2022-06-08] MEDS: HEPARIN SODIUM,PORCINE 5,000 UNITS/ML VIAL SQ SCH (08:56)
[2022-06-08] MEDS ORDERED: LORazepam 1 MG TABLET PO SCH (09:00)
[2022-06-08 15:25] LABS: COVID AG,FIA SOURCE NASAL SWAB
[2022-06-08 15:35] VITALS: BP 129/76
[2022-06-08] MEDS ORDERED: CIPR500T10 PO (16:28)
[2022-06-08] MEDS ORDERED: MELA3TAB89 PO (16:29)
[2022-06-08] MEDS ORDERED: METR500 PO (16:30)
[2022-06-08] MEDS ORDERED: SERT-158 PO (16:31)
[2022-06-08] MEDS ORDERED: ACET-2247 PO (16:32)
[2022-06-09] MEDS ORDERED: LORazepam 1 MG TABLET PO PRN (07:00)
== END 2022-06-08 16:45 | DRG 244 ==
LOC: EMS 22:16 → 5S 06-05 03:54 → AHU 06-05 03:54 → UNDOADMIN 06-05 03:54 → 5S 06-05 04:38 → 6N 06-05 11:45
PROVIDERS: ADMIT Internal Medicine; ATTEND Internal Medicine
DX: K57.92 Diverticulitis of intestine, part unspecified, without perforation or abscess without bleeding (principal); D61.818 Other pancytopenia; J18.9 Pneumonia, unspecified organism; R45.851 Suicidal ideations; F33.2 Major depressive disorder, recurrent severe without psychotic features; K74.60 Unspecified cirrhosis of liver; R45.850 Homicidal ideations; K52.9 Noninfective gastroenteritis and colitis, unspecified; E11.9 Type 2 diabetes mellitus without complications; Z20.822 Contact with and (suspected) exposure to COVID-19; E87.6 Hypokalemia; E66.01 Morbid (severe) obesity due to excess calories; F10.10 Alcohol abuse, uncomplicated; Y90.9 Presence of alcohol in blood, level not specified; Z59.00 Homelessness unspecified; Z68.39 Body mass index [BMI] 39.0-39.9, adult; Z71.6 Tobacco abuse counseling
CPT/HCPCS: 71045; 74177; 80048; 80053; 81003; 83605; 85025; 85610; 85730; 87040; 93005; 99285; J0295; J0456; J0696; J1644; J2270; J2405; J2543; J3411; J3475; J3490; J7030; J7050; J7060; Q9967; 36415-L1; 36415-TC; U0003

== ENCOUNTER 2022-06-08 12:50 | Inpatient (IN) | payer MEDICAID ==
[~2022-06-08] VITALS: Ht 177.8 cm; Wt 120.2 kg
[~2022-06-08 12:50] MED LIST changes: -RISP2TAB86 PO
[2022-06-08] MEDS ORDERED: HALOPERIDOL 5 MG TABLET PO PRN (15:00)
[2022-06-08] MEDS ORDERED: CIPR500T10 PO (16:28)
[2022-06-08] MEDS ORDERED: MELA3TAB89 PO (16:29)
[2022-06-08] MEDS ORDERED: METR500 PO (16:30)
[2022-06-08] MEDS ORDERED: SERT-158 PO (16:31)
[2022-06-08] MEDS ORDERED: ACET-2247 PO (16:32)
[2022-06-08 17:12] VITALS: BP 149/84
[2022-06-08] MEDS ORDERED: ACETAMINOPHEN 325 MG TABLET PO PRN (17:30)
[2022-06-08] MEDS ORDERED: PETROLATUM,WHITE 28 GM JELLY TP PRN (17:30)
[2022-06-08] MEDS ORDERED: MAGNESIUM HYDROXIDE SUSPENSION 30 ML UDCUP PO PRN (17:30)
[2022-06-08] MEDS ORDERED: MAG HYDROX/AL HYDROX/SIMETH ES 30 ML SUSPENSION UDCUP PO PRN (17:30)
[2022-06-08] MEDS ORDERED: DOCUSATE SODIUM 100 MG CAPSULE PO PRN (17:30)
[2022-06-08] MEDS ORDERED: GuaiFENesin/D-METHORPHAN [SUGAR-FREE] 200-20MG/10 ML SYRUP UDCUP PO PRN (17:30)
[2022-06-08] MEDS ORDERED: IBUPROFEN 400 MG TABLET PO PRN (17:30)
[2022-06-08] MEDS ORDERED: CloNIDine HCL 0.1 MG TABLET PO PRN (17:30)
[2022-06-08] MEDS ORDERED: ONDANSETRON HCL 4 MG TABLET PO PRN (17:30)
[2022-06-08] MEDS ORDERED: LOPERAMIDE HCL 2 MG CAPSULE PO PRN (17:30)
[2022-06-08] MEDS: LORazepam 2 MG TABLET PO PRN (19:31)
[2022-06-09 06:48] LABS: BASOPHILS % (AUTO) 1.2 % (0.0-2.0); EOSINOPHILS % (AUTO) 5.8 % (1.0-6.0); HEMATOCRIT 42.3 % (41-53); HEMOGLOBIN 14.3 g/dL (13.5-17.5); LYMPHOCYTES # (AUTO) 1.1 K/uL (1.0-4.8); LYMPHOCYTES % (AUTO) 14.5 % (22.0-44.0); MEAN CORPUSCULAR HEMOGLOBIN 29.3 pg (26.0-34.0); MEAN CORPUSCULAR VOLUME 86 fL (80-100); MONOCYTES # (AUTO) 0.5 K/uL (0.1-1.0); NEUTROPHILS # (AUTO) 5.6 K/uL (1.8-7.7); NEUTROPHILS % (AUTO) 72.5 % (40.0-70.0); PLATELET COUNT (AUTO) 125 K/uL (150-450); RED BLOOD CELL COUNT(AUTO) 4.89 MIL/uL (4.50-5.90); RED CELL DISTRIBUTION WIDTH 17.2 % (11.5-14.5)
[2022-06-09 07:13] LABS: HEMOGLOBIN A1C 5.1 % (3.8-5.6)
[2022-06-09 07:45] LABS: ALANINE AMINOTRANSFERASE 34 U/L (12-78); ALBUMIN 3.8 g/dL (3.4-5.0); ALKALINE PHOSPHATASE 113 U/L (46-116); ANION GAP 6 mmol/L (8-16); ASPARTATE AMINOTRANSFERASE 30 U/L (15-37); BILIRUBIN,TOTAL 1.2 mg/dL (0.1-1.0); CALCIUM, TOTAL 8.6 mg/dL (8.8-10.5); CARBON DIOXIDE 29 mmol/L (22-29); CHLORIDE 102 mmol/L (98-107); CHOL/HDL RATIO 3.7 (4.2-7.3); CHOLESTEROL 126 mg/dL (131-200); CREATININE 0.71 mg/dL (0.60-1.30); GLUCOSE,RANDOM 97 mg/dL (70-110); HDL CHOLESTEROL 34 mg/dL (40-60); LDL CHOL (CALC.) 68 mg/dL (0-130); POTASSIUM 3.6 mmol/L (3.5-5.1); SODIUM SERUM 137 mmol/L (136-145); THYROID STIMULATING HORMONE 5.22 uIU/mL (0.36-3.74); TOTAL PROTEIN, SERUM 7.4 g/dL (6.4-8.2); TRIGLYCERIDES 122 mg/dL (15-150); UREA NITROGEN, BLOOD 9 mg/dL (7-18)
[2022-06-09 07:49] LABS: GLOMERULAR FILTR. RATE CALC > 60 mL/min (>60)
[2022-06-09 08:06] VITALS: BP 149/75
[2022-06-09] MEDS: SERTRALINE HCL 50 MG TABLET PO SCH (09:22)
[2022-06-09 16:03] VITALS: BP 118/74
[2022-06-09] MEDS: LORazepam 2 MG TABLET PO PRN ×2 (16:55→21:10)
[2022-06-09] MEDS: NICOTINE 14 MG/24 HOUR PATCH TD PRN (20:11)
[2022-06-09] MEDS: ZOLPIDEM TARTRATE 10 MG TABLET PO PRN (22:24)
[2022-06-10] MEDS: SERTRALINE HCL 50 MG TABLET PO SCH (08:23)
[2022-06-10 08:30] VITALS: BP 121/71
[2022-06-10] MEDS: LORazepam 2 MG TABLET PO PRN (12:05)
[2022-06-10 16:00] VITALS: BP 129/73
[2022-06-10] MEDS: ZOLPIDEM TARTRATE 10 MG TABLET PO PRN (22:28)
[2022-06-11 09:00] VITALS: BP 151/84
[2022-06-11] MEDS: SERTRALINE HCL 50 MG TABLET PO SCH (09:16)
[2022-06-11] MEDS: LORazepam 2 MG TABLET PO PRN ×3 (11:11→21:11)
[2022-06-11] MEDS: NICOTINE 14 MG/24 HOUR PATCH TD PRN (11:12)
[2022-06-11 16:12] VITALS: BP 124/81
[2022-06-11 16:38] VITALS: BP 110/71
[2022-06-11] MEDS: HydrOXYzine HCL 10 MG TABLET PO PRN (17:48)
[2022-06-11] MEDS: ZOLPIDEM TARTRATE 10 MG TABLET PO PRN (22:27)
[2022-06-12 08:00] VITALS: BP 136/83
[2022-06-12] MEDS: SERTRALINE HCL 50 MG TABLET PO SCH (08:09)
[2022-06-12] MEDS: LORazepam 2 MG TABLET PO PRN ×2 (14:44→19:10)
[2022-06-12 16:00] VITALS: BP 144/86
[2022-06-12] MEDS: HydrOXYzine HCL 10 MG TABLET PO PRN (16:16)
[2022-06-12] MEDS: NICOTINE 14 MG/24 HOUR PATCH TD PRN (16:17)
[2022-06-12 19:10] VITALS: BP 140/93
[2022-06-12] MEDS: ZOLPIDEM TARTRATE 10 MG TABLET PO PRN (20:46)
[2022-06-13 08:00] VITALS: BP 133/80
[2022-06-13] MEDS: SERTRALINE HCL 50 MG TABLET PO SCH (08:11)
[2022-06-13] MEDS: LORazepam 2 MG TABLET PO PRN ×3 (12:05→21:34)
[2022-06-13] MEDS: NICOTINE 14 MG/24 HOUR PATCH TD PRN (12:06)
[2022-06-13 16:51] VITALS: BP 15/91
[2022-06-13 21:34] VITALS: BP 150/98
[2022-06-13] MEDS: ZOLPIDEM TARTRATE 10 MG TABLET PO PRN (22:34)
[2022-06-14 06:47] LABS: COVID AG,FIA SOURCE NASAL SWAB
[2022-06-14] MEDS: SERTRALINE HCL 50 MG TABLET PO SCH (08:25)
[2022-06-14 08:30] VITALS: BP 121/72
[2022-06-14] MEDS: NICOTINE 14 MG/24 HOUR PATCH TD PRN (11:59)
[2022-06-14] MEDS: LORazepam 2 MG TABLET PO PRN ×3 (12:00→21:33)
[2022-06-14 16:00] VITALS: BP 164/92
[2022-06-14 16:19] VITALS: BP 159/93
[2022-06-15] MEDS: SERTRALINE HCL 50 MG TABLET PO SCH (08:42)
[2022-06-15] MEDS ORDERED: SERT-439 PO (10:25)
== END 2022-06-15 15:00 | disposition home or self-care (01) | DRG 750 ==
LOC: 3EI 17:00
PROVIDERS: ADMIT Psychiatry & Neurology Child & Adolescent Psychiatry; ATTEND Psychiatry & Neurology Child & Adolescent Psychiatry
DX: F25.1 Schizoaffective disorder, depressive type (principal); R45.851 Suicidal ideations; Z91.19 Patient's noncompliance with other medical treatment and regimen; F19.10 Other psychoactive substance abuse, uncomplicated; F10.20 Alcohol dependence, uncomplicated; F12.10 Cannabis abuse, uncomplicated; K57.90 Diverticulosis of intestine, part unspecified, without perforation or abscess without bleeding; Z20.822 Contact with and (suspected) exposure to COVID-19; Z79.899 Other long term (current) drug therapy
CPT/HCPCS: 80053; 80061; 83036; 84443; 85025; 87081

== ENCOUNTER 2022-07-11 01:42 | Inpatient (IN) | payer MEDICAID, OTHER ==
[~2022-07-11] VITALS: Ht 177.8 cm; Wt 125.9 kg
[2022-07-11 03:47] LABS: BASOPHILS % (AUTO) 1.5 % (0.0-2.0); EOSINOPHILS % (AUTO) 2.6 % (1.0-6.0); HEMATOCRIT 43.9 % (41-53); HEMOGLOBIN 14.5 g/dL (13.5-17.5); LYMPHOCYTES # (AUTO) 1.3 K/uL (1.0-4.8); LYMPHOCYTES % (AUTO) 16.1 % (22.0-44.0); MEAN CORPUSCULAR VOLUME 88 fL (80-100); MONOCYTES # (AUTO) 0.6 K/uL (0.1-1.0); MONOCYTES % (AUTO) 7.6 % (2.0-9.0); NEUTROPHILS # (AUTO) 5.9 K/uL (1.8-7.7); NEUTROPHILS % (AUTO) 72.2 % (40.0-70.0); PLATELET COUNT (AUTO) 136 K/uL (150-450); RED BLOOD CELL COUNT(AUTO) 4.99 MIL/uL (4.50-5.90); RED CELL DISTRIBUTION WIDTH 16.8 % (11.5-14.5)
[2022-07-11 03:50] LABS: ANION GAP 6 mmol/L (8-16); CALCIUM, TOTAL 9.4 mg/dL (8.8-10.5); CARBON DIOXIDE 31 mmol/L (22-29); CHLORIDE 101 mmol/L (98-107); CREATININE 0.64 mg/dL (0.60-1.30); GLUCOSE,RANDOM 127 mg/dL (70-110); POTASSIUM 3.1 mmol/L (3.5-5.1); SODIUM SERUM 138 mmol/L (136-145); UREA NITROGEN, BLOOD 4 mg/dL (7-18)
[2022-07-11 03:51] LABS: GLOMERULAR FILTR. RATE CALC > 60 mL/min (>60)
[2022-07-11 03:54] LABS: ALANINE AMINOTRANSFERASE 26 U/L (12-78); ALKALINE PHOSPHATASE 110 U/L (46-116); ASPARTATE AMINOTRANSFERASE 34 U/L (15-37); BILIRUBIN,TOTAL 1.2 mg/dL (0.1-1.0); LIPASE 140 U/L (73-393); TOTAL PROTEIN, SERUM 8.2 g/dL (6.4-8.2)
[2022-07-11 04:55] LABS: COVID AG,FIA SOURCE NASOPHARYNGEAL
[2022-07-11] MEDS ORDERED: POTASSIUM CHLORIDE 20 MEQ ER TABLET PO ONE (06:00)
[2022-07-11] MEDS ORDERED: ZOLPIDEM TARTRATE 10 MG TABLET PO PRN (06:15)
[2022-07-11 06:29] LABS: APPEARANCE,URINE CLEAR (CLEAR); BILIRUBIN,URINE NEGATIVE (NEGATIVE); GLUCOSE, URINE (UA) NEGATIVE (NEGATIVE); KETONES,URINE NEGATIVE (NEGATIVE); LEUKOCYTE ESTERASE ,URINE TRACE (NEGATIVE); NITRATE,URINE NEGATIVE (NEGATIVE); OCCULT BLOOD,URINE NEGATIVE (NEGATIVE); PH,URINE 6.5 (5.0-8.0); PROTEIN,URINE NEGATIVE (NEGATIVE); SPECIFIC GRAVITIY, URINE 1.011 (1.003-1.030); UROBILINOGEN,URINE <=1.0 mg/dL (<=1.0)
[2022-07-11 06:33] LABS: AMPHET/METH SCREEN,URINE NEGATIVE (NEGATIVE); BARBITURATE SCREEN, URINE NEGATIVE (NEGATIVE); BENZODIAZEPINES SCREEN,URINE POSITIVE (NEGATIVE); CANNABINOID SCREEN,URINE POSITIVE (NEGATIVE); COCAINE SCREEN,URINE NEGATIVE (NEGATIVE); METHADONE SCREEN, URINE NEGATIVE (NEGATIVE); OPIATE SCREEN,URINE NEGATIVE (NEGATIVE)
[2022-07-11 06:44] LABS: PHENCYCLIDINE SCREEN,URINE NEGATIVE (NEGATIVE)
[2022-07-11 07:00] LABS: BACTERIA,URINE None Seen /HPF (None Seen); RBC,URINE None Seen /HPF (0-2); SQUAMOUS EPITHELIAL CELL,UR Few /LPF (None Seen); WBC,URINE None Seen /HPF (0-5)
[2022-07-11] MEDS: LORazepam 2 MG TABLET PO PRN ×2 (08:58→17:14)
[2022-07-11 11:30] VITALS: BP 139/85
[2022-07-11] MEDS: SERTRALINE HCL 50 MG TABLET PO SCH (12:55)
[2022-07-11] MEDS: HALOPERIDOL 5 MG TABLET PO PRN (17:13)
[2022-07-11 20:26] VITALS: BP 147/80
[2022-07-12] MEDS: SERTRALINE HCL 50 MG TABLET PO SCH (08:25)
[2022-07-12] MEDS: NICOTINE 7 MG/24 HOUR PATCH TD SCH (08:25)
[2022-07-12] MEDS ORDERED: ONDANSETRON HCL 4 MG TABLET PO PRN (08:30)
[2022-07-12] MEDS ORDERED: LOPERAMIDE HCL 2 MG CAPSULE PO PRN (08:30)
[2022-07-12] MEDS ORDERED: MAG HYDROX/AL HYDROX/SIMETH ES 30 ML SUSPENSION UDCUP PO PRN (08:30)
[2022-07-12] MEDS ORDERED: ACETAMINOPHEN 325 MG TABLET PO PRN (08:30)
[2022-07-12] MEDS ORDERED: PETROLATUM,WHITE 28 GM JELLY TP PRN (08:30)
[2022-07-12] MEDS ORDERED: DOCUSATE SODIUM 100 MG CAPSULE PO PRN (08:30)
[2022-07-12] MEDS ORDERED: MAGNESIUM HYDROXIDE SUSPENSION 30 ML UDCUP PO PRN (08:30)
[2022-07-12] MEDS ORDERED: NICOTINE 14 MG/24 HOUR PATCH TD PRN (08:30)
[2022-07-12] MEDS ORDERED: CloNIDine HCL 0.1 MG TABLET PO PRN (08:30)
[2022-07-12] MEDS ORDERED: ALBUTEROL SULFATE HFA 90 MCG/PUFF 8 GM INHALER IH PRN (08:30)
[2022-07-12] MEDS ORDERED: IBUPROFEN 400 MG TABLET PO PRN (08:30)
[2022-07-12] MEDS ORDERED: GuaiFENesin/D-METHORPHAN [SUGAR-FREE] 200-20MG/10 ML SYRUP UDCUP PO PRN (08:30)
[2022-07-12 09:06] VITALS: BP 133/74
[2022-07-12] MEDS: LORazepam 2 MG TABLET PO PRN ×3 (09:59→20:18)
[2022-07-12] MEDS ORDERED: SERTRALINE HCL 50 MG TABLET PO SCH (10:45)
[2022-07-12] MEDS: QUEtiapine FUMARATE 25 MG TABLET PO SCH ×2 (12:50→20:18)
[2022-07-12] MEDS: HALOPERIDOL 5 MG TABLET PO PRN (15:53)
[2022-07-12 20:33] VITALS: BP 140/84
[2022-07-13] MEDS: NICOTINE 7 MG/24 HOUR PATCH TD SCH (08:53)
[2022-07-13] MEDS: QUEtiapine FUMARATE 25 MG TABLET PO SCH (08:53)
[2022-07-13] MEDS ORDERED: SERTRALINE HCL 50 MG TABLET PO SCH (09:00)
[2022-07-13] MEDS: LORazepam 2 MG TABLET PO PRN (09:01)
[2022-07-13] MEDS ORDERED: SERT-439 PO (10:26)
[2022-07-13] MEDS ORDERED: QUET25TA36 PO (10:26)
== END 2022-07-13 13:11 | disposition home or self-care (01) | DRG 750 ==
LOC: EMS 01:44 → B3A 06:53
PROVIDERS: ADMIT Psychiatry & Neurology Psychiatry; ATTEND Psychiatry & Neurology Child & Adolescent Psychiatry
DX: F25.1 Schizoaffective disorder, depressive type (principal); D69.6 Thrombocytopenia, unspecified; R45.851 Suicidal ideations; K70.30 Alcoholic cirrhosis of liver without ascites; R45.850 Homicidal ideations; E87.6 Hypokalemia; E66.01 Morbid (severe) obesity due to excess calories; F10.10 Alcohol abuse, uncomplicated; F12.10 Cannabis abuse, uncomplicated; F41.9 Anxiety disorder, unspecified; Z20.822 Contact with and (suspected) exposure to COVID-19; K57.90 Diverticulosis of intestine, part unspecified, without perforation or abscess without bleeding; L40.9 Psoriasis, unspecified; Z87.891 Personal history of nicotine dependence; Z91.19 Patient's noncompliance with other medical treatment and regimen; Z68.39 Body mass index [BMI] 39.0-39.9, adult
CPT/HCPCS: 80053; 81001; 83690; 85025; 99285; G0480

== ENCOUNTER 2022-08-31 21:12 | Inpatient (IN) | payer MEDICAID ==
[~2022-08-31] VITALS: Ht 172.7 cm; Wt 130.2 kg
[~2022-08-31 21:12] MED LIST changes: +QUET25TA36 PO
[2022-08-31 21:39] LABS: BASOPHILS % (AUTO) 1.5 % (0.0-2.0); EOSINOPHILS % (AUTO) 2.2 % (1.0-6.0); HEMATOCRIT 43.5 % (41-53); HEMOGLOBIN 14.3 g/dL (13.5-17.5); LYMPHOCYTES # (AUTO) 0.9 K/uL (1.0-4.8); LYMPHOCYTES % (AUTO) 11.9 % (22.0-44.0); MEAN CORPUSCULAR HEMOGLOBIN 29.8 pg (26.0-34.0); MEAN CORPUSCULAR HGB CONC 32.9 G/dL (31.0-37.0); MEAN CORPUSCULAR VOLUME 91 fL (80-100); MONOCYTES # (AUTO) 0.5 K/uL (0.1-1.0); MONOCYTES % (AUTO) 6.6 % (2.0-9.0); NEUTROPHILS % (AUTO) 77.8 % (40.0-70.0); PLATELET COUNT (AUTO) 156 K/uL (150-450); RED CELL DISTRIBUTION WIDTH 16.9 % (11.5-14.5)
[2022-08-31 21:53] LABS: ALANINE AMINOTRANSFERASE 69 U/L (12-78); ALBUMIN 3.5 g/dL (3.4-5.0); ALKALINE PHOSPHATASE 123 U/L (46-116); ANION GAP 12 mmol/L (8-16); ASPARTATE AMINOTRANSFERASE 71 U/L (15-37); BILIRUBIN,TOTAL 1.1 mg/dL (0.1-1.0); CALCIUM, TOTAL 8.7 mg/dL (8.8-10.5); CARBON DIOXIDE 25 mmol/L (22-29); CHLORIDE 102 mmol/L (98-107); CREATININE 0.56 mg/dL (0.60-1.30); GLUCOSE,RANDOM 148 mg/dL (70-110); SODIUM SERUM 139 mmol/L (136-145); TOTAL PROTEIN, SERUM 7.5 g/dL (6.4-8.2); UREA NITROGEN, BLOOD 3 mg/dL (7-18)
[2022-08-31 21:54] LABS: GLOMERULAR FILTR. RATE CALC > 60 mL/min (>60)
[2022-08-31 23:34] LABS: COVID AG,FIA SOURCE NASAL SWAB
[2022-09-01] VITALS (12 sets, daily range): BP systolic 149–169; BP diastolic 82–101
[2022-09-01] MEDS ORDERED: POTASSIUM CHLORIDE 20 MEQ ER TABLET PO ONE
[2022-09-01] MEDS ORDERED: LORazepam 2 MG TABLET PO ONE (00:15)
[2022-09-01 00:47] LABS: AMPHET/METH SCREEN,URINE NEGATIVE (NEGATIVE); BARBITURATE SCREEN, URINE NEGATIVE (NEGATIVE); BENZODIAZEPINES SCREEN,URINE NEGATIVE (NEGATIVE); CANNABINOID SCREEN,URINE NEGATIVE (NEGATIVE); COCAINE SCREEN,URINE NEGATIVE (NEGATIVE); METHADONE SCREEN, URINE NEGATIVE (NEGATIVE); OPIATE SCREEN,URINE NEGATIVE (NEGATIVE); PHENCYCLIDINE SCREEN,URINE NEGATIVE (NEGATIVE)
[2022-09-01] MEDS ORDERED: LORazepam 2 MG TABLET PO PRN (01:00)
[2022-09-01] MEDS ORDERED: HALOPERIDOL 5 MG TABLET PO PRN (01:00)
[2022-09-01] MEDS: ZOLPIDEM TARTRATE 10 MG TABLET PO PRN ×2 (03:28→22:41)
[2022-09-01] MEDS ORDERED: MAGNESIUM HYDROXIDE SUSPENSION 30 ML UDCUP PO PRN (09:30)
[2022-09-01] MEDS ORDERED: TUBERCULIN, PURIFIED PROTEIN DERIVATIVE 5 TU/0.1 ML SYRINGE ID ONE (09:30)
[2022-09-01] MEDS ORDERED: GuaiFENesin/D-METHORPHAN [SUGAR-FREE] 200-20MG/10 ML SYRUP UDCUP PO PRN (09:30)
[2022-09-01] MEDS ORDERED: PROMETHAZINE HCL 25 MG TABLET PO PRN (09:30)
[2022-09-01] MEDS ORDERED: LOPERAMIDE HCL 2 MG CAPSULE PO PRN ×2 (09:30)
[2022-09-01] MEDS ORDERED: CYANOCOBALAMIN 1,000 MCG/ML VIAL IM ONE (09:30)
[2022-09-01] MEDS ORDERED: ACETAMINOPHEN 325 MG TABLET PO PRN (09:30)
[2022-09-01] MEDS ORDERED: MAG HYDROX/AL HYDROX/SIMETH ES 30 ML SUSPENSION UDCUP PO PRN (09:30)
[2022-09-01] MEDS ORDERED: HydrOXYzine PAMOATE 50 MG CAPSULE PO PRN (09:30)
[2022-09-01] MEDS ORDERED: OLANZapine 5 MG RAPDIS TABLET PO PRN (09:45)
[2022-09-01] MEDS: DIAZEPAM 10 MG TABLET PO PRN ×2 (14:51→18:00)
[2022-09-01] MEDS: THIAMINE 100 MG TABLET PO SCH (17:28)
[2022-09-01] MEDS: OLANZapine 5 MG RAPDIS TABLET PO SCH (20:43)
[2022-09-01] MEDS: MELATONIN 5 MG TABLET PO SCH (20:43)
[2022-09-01] MEDS ORDERED: CloNIDine HCL 0.1 MG TABLET PO PRN (21:00)
[2022-09-02] VITALS (7 sets, daily range): BP systolic 134–166; BP diastolic 77–113
[2022-09-02 06:53] LABS: CHOL/HDL RATIO 4.5 (4.2-7.3); FREE T4 (FREE THYROXINE) 0.86 ng/dL (0.76-1.46); THYROID STIMULATING HORMONE 4.01 uIU/mL (0.36-3.74)
[2022-09-02] MEDS ORDERED: DIAZEPAM 10 MG TABLET PO PRN (07:00)
[2022-09-02 07:08] LABS: ALANINE AMINOTRANSFERASE 53 U/L (12-78); ALBUMIN 3.1 g/dL (3.4-5.0); ALKALINE PHOSPHATASE 118 U/L (46-116); ANION GAP 11 mmol/L (8-16); ASPARTATE AMINOTRANSFERASE 50 U/L (15-37); BILIRUBIN,TOTAL 2.1 mg/dL (0.1-1.0); CALCIUM, TOTAL 8.9 mg/dL (8.8-10.5); CARBON DIOXIDE 24 mmol/L (22-29); CHLORIDE 107 mmol/L (98-107); CREATININE 0.53 mg/dL (0.60-1.30); GLUCOSE,RANDOM 108 mg/dL (70-110); POTASSIUM 3.4 mmol/L (3.5-5.1); SODIUM SERUM 142 mmol/L (136-145); UREA NITROGEN, BLOOD 6 mg/dL (7-18)
[2022-09-02 07:09] LABS: GLOMERULAR FILTR. RATE CALC > 60 mL/min (>60); HEMOGLOBIN A1C 5.6 % (3.8-5.6)
[2022-09-02] MEDS ORDERED: SERTRALINE HCL 50 MG TABLET PO SCH (09:00)
[2022-09-02] MEDS: FLUoxetine HCL 20 MG CAPSULE PO SCH (09:06)
[2022-09-02] MEDS: FOLIC ACID 1 MG TABLET PO SCH (09:06)
[2022-09-02] MEDS: DIAZEPAM 10 MG TABLET PO SCH ×4 (09:06→21:00)
[2022-09-02] MEDS: OMEGA-3/DHA/EPA/FISH OIL 1,000 MG CAPSULE PO SCH (09:06)
[2022-09-02] MEDS: NALTREXONE HCL 50 MG TABLET PO SCH (09:06)
[2022-09-02] MEDS: THIAMINE 100 MG TABLET PO SCH ×2 (09:06→17:07)
[2022-09-02] MEDS: MULTIVITAMINS WITH MINERALS, THERAPEUTIC TABLET PO SCH (09:06)
[2022-09-02] MEDS: MELATONIN 5 MG TABLET PO SCH (21:00)
[2022-09-02] MEDS: OLANZapine 5 MG RAPDIS TABLET PO SCH (21:01)
[2022-09-03 06:06] LABS: HEPATITIS C AB (EIA) 0.1 s/co ratio (0.0-0.9)
[2022-09-03] MEDS: FLUoxetine HCL 20 MG CAPSULE PO SCH (08:54)
[2022-09-03] MEDS: FOLIC ACID 1 MG TABLET PO SCH (08:54)
[2022-09-03] MEDS: MULTIVITAMINS WITH MINERALS, THERAPEUTIC TABLET PO SCH (08:54)
[2022-09-03] MEDS: OMEGA-3/DHA/EPA/FISH OIL 1,000 MG CAPSULE PO SCH (08:54)
[2022-09-03] MEDS: DIAZEPAM 10 MG TABLET PO SCH ×4 (08:54→21:49)
[2022-09-03] MEDS: THIAMINE 100 MG TABLET PO SCH ×2 (08:54→16:09)
[2022-09-03] MEDS: NALTREXONE HCL 50 MG TABLET PO SCH (08:54)
[2022-09-03 10:31] VITALS: BP 163/98
[2022-09-03 10:33] VITALS: BP 163/98
[2022-09-03 16:13] VITALS: BP 141/71
[2022-09-03] MEDS ORDERED: OLANZapine 10 MG RAPDIS TABLET PO SCH (21:00)
[2022-09-03] MEDS: MELATONIN 5 MG TABLET PO SCH (21:49)
[2022-09-04] MEDS ORDERED: DIAZEPAM 5 MG TABLET PO PRN (07:00)
[2022-09-04 08:00] VITALS: BP 131/89
[2022-09-04] MEDS: THIAMINE 100 MG TABLET PO SCH (08:31)
[2022-09-04] MEDS: OMEGA-3/DHA/EPA/FISH OIL 1,000 MG CAPSULE PO SCH (08:31)
[2022-09-04] MEDS: FOLIC ACID 1 MG TABLET PO SCH (08:31)
[2022-09-04] MEDS: NALTREXONE HCL 50 MG TABLET PO SCH (08:31)
[2022-09-04] MEDS: MULTIVITAMINS WITH MINERALS, THERAPEUTIC TABLET PO SCH (08:31)
[2022-09-04] MEDS: FLUoxetine HCL 20 MG CAPSULE PO SCH (08:31)
[2022-09-04] MEDS: DIAZEPAM 5 MG TABLET PO SCH ×2 (08:33→13:21)
[2022-09-04] MEDS ORDERED: OMEG-135 PO (10:47)
[2022-09-04] MEDS ORDERED: NALT50TA PO (10:47)
[2022-09-04] MEDS ORDERED: OLAN10TA26 PO (10:47)
[2022-09-04] MEDS ORDERED: PROZ20 PO (10:47)
[2022-09-04] MEDS ORDERED: MELA5TAB40 PO (10:47)
[2022-09-05] MEDS ORDERED: DIAZEPAM 5 MG TABLET PO PRN (07:00)
== END 2022-09-04 13:30 | disposition home or self-care (01) | DRG 750 ==
LOC: EMS 21:14 → 3EI 09-01 01:15
PROVIDERS: ADMIT Psychiatry & Neurology Psychiatry; ATTEND Psychiatry & Neurology Psychiatry
DX: F25.9 Schizoaffective disorder, unspecified (principal); R45.851 Suicidal ideations; Z91.199 Patient's noncompliance with other medical treatment and regimen due to unspecified reason; E87.6 Hypokalemia; F10.10 Alcohol abuse, uncomplicated; F17.200 Nicotine dependence, unspecified, uncomplicated; I10 Essential (primary) hypertension; J44.9 Chronic obstructive pulmonary disease, unspecified; L40.9 Psoriasis, unspecified; Z20.822 Contact with and (suspected) exposure to COVID-19; Z91.51 Personal history of suicidal behavior; Z55.9 Problems related to education and literacy, unspecified; Z63.9 Problem related to primary support group, unspecified; Z65.3 Problems related to other legal circumstances; Z59.9 Problem related to housing and economic circumstances, unspecified
CPT/HCPCS: 80053; 80061; 80074; 83036; 84439; 84443; 85025; 86592; 99285; G0480; J3420; Q9967

== ENCOUNTER 2022-09-11 19:55 | Inpatient (IN) | payer MEDICAID ==
[~2022-09-11] VITALS: Ht 177.8 cm; Wt 134.3 kg
[~2022-09-11 19:55] MED LIST changes: +MELA5TAB40 PO; +NALT50TA PO; +OLAN10TA26 PO; +OMEG-135 PO; +PROZ20 PO; -QUET25TA36 PO; -SERT-439 PO
[2022-09-11 20:17] LABS: BASOPHILS % (AUTO) 0.7 % (0.0-2.0); EOSINOPHILS % (AUTO) 1.3 % (1.0-6.0); HEMATOCRIT 47.2 % (41-53); HEMOGLOBIN 15.2 g/dL (13.5-17.5); LYMPHOCYTES % (AUTO) 8.7 % (22.0-44.0); MEAN CORPUSCULAR HEMOGLOBIN 29.8 pg (26.0-34.0); MEAN CORPUSCULAR HGB CONC 32.2 G/dL (31.0-37.0); MEAN CORPUSCULAR VOLUME 93 fL (80-100); MONOCYTES # (AUTO) 0.8 K/uL (0.1-1.0); MONOCYTES % (AUTO) 6.8 % (2.0-9.0); NEUTROPHILS # (AUTO) 9.9 K/uL (1.8-7.7); NEUTROPHILS % (AUTO) 82.5 % (40.0-70.0); PLATELET COUNT (AUTO) 212 K/uL (150-450); RED CELL DISTRIBUTION WIDTH 17.3 % (11.5-14.5)
[2022-09-11 20:25] LABS: ANION GAP 9 mmol/L (8-16); CARBON DIOXIDE 27 mmol/L (22-29); CHLORIDE 102 mmol/L (98-107); CREATININE 0.82 mg/dL (0.60-1.30); GLUCOSE,RANDOM 224 mg/dL (70-110); POTASSIUM 3.4 mmol/L (3.5-5.1); SODIUM SERUM 138 mmol/L (136-145); UREA NITROGEN, BLOOD 4 mg/dL (7-18)
[2022-09-11 20:26] LABS: GLOMERULAR FILTR. RATE CALC > 60 mL/min (>60)
[2022-09-11 20:31] LABS: ALANINE AMINOTRANSFERASE 97 U/L (12-78); ALBUMIN 3.8 g/dL (3.4-5.0); ALKALINE PHOSPHATASE 110 U/L (46-116); ASPARTATE AMINOTRANSFERASE 102 U/L (15-37); BILIRUBIN,TOTAL 0.6 mg/dL (0.1-1.0); TOTAL PROTEIN, SERUM 8.5 g/dL (6.4-8.2)
[2022-09-11] MEDS ORDERED: LIDOCAINE 1% 10 ML VIAL SQ ONE (22:30)
[2022-09-11 22:51] LABS: AMPHET/METH SCREEN,URINE NEGATIVE (NEGATIVE); BARBITURATE SCREEN, URINE NEGATIVE (NEGATIVE); BENZODIAZEPINES SCREEN,URINE POSITIVE (NEGATIVE); CANNABINOID SCREEN,URINE POSITIVE (NEGATIVE); COCAINE SCREEN,URINE NEGATIVE (NEGATIVE); METHADONE SCREEN, URINE NEGATIVE (NEGATIVE); OPIATE SCREEN,URINE NEGATIVE (NEGATIVE)
[2022-09-11 22:52] LABS: PHENCYCLIDINE SCREEN,URINE NEGATIVE (NEGATIVE)
[2022-09-12] MEDS ORDERED: POTASSIUM CHLORIDE 10% 40 MEQ/30 ML LIQUID UDCUP PO ONE (00:45)
[2022-09-12 02:42] LABS: COVID AG,FIA SOURCE NASAL SWAB
[2022-09-12] MEDS ORDERED: ACETAMINOPHEN 500 MG TABLET PO ONE (03:30)
[2022-09-12] MEDS ORDERED: ZOLPIDEM TARTRATE 10 MG TABLET PO PRN (04:15)
[2022-09-12 04:16] LABS: GLUCOSE,POINT OF CARE 109 MG/DL (70-110)
[2022-09-12] MEDS: LORazepam 1 MG TABLET PO PRN ×3 (06:39→17:45)
[2022-09-13 01:52] VITALS: BP 136/76
[2022-09-13 03:05] VITALS: BP 145/80
[2022-09-13] MEDS: LORazepam 1 MG TABLET PO PRN ×3 (06:17→17:04)
[2022-09-13 09:58] VITALS: BP 157/91
[2022-09-13] MEDS: HALOPERIDOL 5 MG TABLET PO PRN ×2 (11:16→17:04)
[2022-09-13] MEDS ORDERED: ACETAMINOPHEN 325 MG TABLET PO PRN (11:30)
[2022-09-13 11:50] VITALS: BP 148/89
[2022-09-13] MEDS: IBUPROFEN 600 MG TABLET PO PRN (11:50)
[2022-09-13 12:50] VITALS: BP 148/91
[2022-09-13] MEDS ORDERED: LORazepam 0.5 MG TABLET PO PRN (18:15)
[2022-09-13] MEDS ORDERED: ChlorproMAZINE HCL 100 MG TABLET PO PRN (18:15)
[2022-09-13] MEDS: MELATONIN 5 MG TABLET PO SCH (20:56)
[2022-09-13] MEDS ORDERED: OLANZapine 10 MG RAPDIS TABLET PO SCH (21:00)
[2022-09-13] MEDS: ZOLPIDEM TARTRATE 5 MG TABLET PO PRN (21:52)
[2022-09-13] MEDS ORDERED: CloNIDine HCL 0.1 MG TABLET PO PRN (23:15)
[2022-09-14] MEDS ORDERED: POTASSIUM CHLORIDE 20 MEQ ER TABLET PO ONE (08:00)
[2022-09-14 08:30] VITALS: BP 148/94
[2022-09-14] MEDS: HALOPERIDOL 5 MG TABLET PO PRN (08:55)
[2022-09-14] MEDS: OMEGA-3/DHA/EPA/FISH OIL 1,000 MG CAPSULE PO SCH (08:55)
[2022-09-14] MEDS: FLUoxetine HCL 20 MG CAPSULE PO SCH (08:55)
[2022-09-14] MEDS: AmLODIPine BESYLATE 5 MG TABLET PO SCH (08:55)
[2022-09-14 09:06] VITALS: BP 148/94
[2022-09-14] MEDS: IBUPROFEN 600 MG TABLET PO PRN (09:06)
[2022-09-14] MEDS ORDERED: HydrOXYzine PAMOATE 50 MG CAPSULE PO PRN (10:00)
[2022-09-14] MEDS ORDERED: DIAZEPAM 10 MG TABLET PO ONE (10:00)
[2022-09-14] MEDS ORDERED: GuaiFENesin/D-METHORPHAN [SUGAR-FREE] 200-20MG/10 ML SYRUP UDCUP PO PRN (10:00)
[2022-09-14] MEDS ORDERED: MAGNESIUM HYDROXIDE SUSPENSION 30 ML UDCUP PO PRN (10:00)
[2022-09-14] MEDS ORDERED: ACETAMINOPHEN 325 MG TABLET PO PRN (10:00)
[2022-09-14] MEDS ORDERED: MAG HYDROX/AL HYDROX/SIMETH ES 30 ML SUSPENSION UDCUP PO PRN (10:00)
[2022-09-14] MEDS ORDERED: PROMETHAZINE HCL 25 MG TABLET PO PRN (10:00)
[2022-09-14] MEDS ORDERED: DIAZEPAM 10 MG TABLET PO PRN (10:00)
[2022-09-14] MEDS ORDERED: PALIPERIDONE PALMITATE 234 MG/1.5 ML SYRINGE IM ONE (10:00)
[2022-09-14] MEDS ORDERED: LOPERAMIDE HCL 2 MG CAPSULE PO PRN (10:00)
[2022-09-14 10:06] VITALS: BP 136/82
[2022-09-14] MEDS: LORazepam 2 MG TABLET PO PRN ×2 (14:55→20:18)
[2022-09-14 16:00] VITALS: BP 137/90
[2022-09-14] MEDS: THIAMINE 100 MG TABLET PO SCH (16:52)
[2022-09-14] MEDS: MELATONIN 5 MG TABLET PO SCH (20:16)
[2022-09-14] MEDS: ZOLPIDEM TARTRATE 5 MG TABLET PO PRN (20:18)
[2022-09-14] MEDS ORDERED: OLANZapine 10 MG RAPDIS TABLET PO SCH (21:00)
[2022-09-15] MEDS ORDERED: DIAZEPAM 10 MG TABLET PO PRN (07:00)
[2022-09-15 07:33] LABS: ALANINE AMINOTRANSFERASE 39 U/L (12-78); ALBUMIN 3.2 g/dL (3.4-5.0); ALKALINE PHOSPHATASE 84 U/L (46-116); ANION GAP 6 mmol/L (8-16); ASPARTATE AMINOTRANSFERASE 33 U/L (15-37); BILIRUBIN,TOTAL 1.2 mg/dL (0.1-1.0); CALCIUM, TOTAL 9.1 mg/dL (8.8-10.5); CARBON DIOXIDE 27 mmol/L (22-29); CHLORIDE 105 mmol/L (98-107); CREATININE 0.68 mg/dL (0.60-1.30); GLOMERULAR FILTR. RATE CALC > 60 mL/min (>60); GLUCOSE,RANDOM 101 mg/dL (70-110); POTASSIUM 3.9 mmol/L (3.5-5.1); SODIUM SERUM 138 mmol/L (136-145); TOTAL PROTEIN, SERUM 6.9 g/dL (6.4-8.2); UREA NITROGEN, BLOOD 7 mg/dL (7-18)
[2022-09-15] MEDS: FLUoxetine HCL 20 MG CAPSULE PO SCH (08:05)
[2022-09-15] MEDS: LORazepam 2 MG TABLET PO PRN ×3 (08:06→18:31)
[2022-09-15] MEDS: OMEGA-3/DHA/EPA/FISH OIL 1,000 MG CAPSULE PO SCH (08:06)
[2022-09-15] MEDS: FOLIC ACID 1 MG TABLET PO SCH (08:06)
[2022-09-15] MEDS: AmLODIPine BESYLATE 5 MG TABLET PO SCH (08:06)
[2022-09-15] MEDS: NALTREXONE HCL 50 MG TABLET PO SCH (08:06)
[2022-09-15] MEDS: THIAMINE 100 MG TABLET PO SCH ×2 (08:06→16:52)
[2022-09-15] MEDS: MULTIVITAMINS WITH MINERALS, THERAPEUTIC TABLET PO SCH (08:06)
[2022-09-15] MEDS ORDERED: NICOTINE 14 MG/24 HOUR PATCH TD PRN (08:15)
[2022-09-15 08:26] VITALS: BP 148/96
[2022-09-15] MEDS: IBUPROFEN 600 MG TABLET PO PRN (08:26)
[2022-09-15] MEDS ORDERED: DIAZEPAM 10 MG TABLET PO SCH (09:00)
[2022-09-15] MEDS ORDERED: OMEGA-3/DHA/EPA/FISH OIL 1,000 MG CAPSULE PO SCH (09:00)
[2022-09-15 09:26] VITALS: BP 137/86
[2022-09-15 12:25] VITALS: BP 137/91
[2022-09-15] MEDS: OLANZapine 5 MG RAPDIS TABLET PO PRN ×2 (12:25→18:32)
[2022-09-15 13:25] VITALS: BP 146/93
[2022-09-15 16:53] VITALS: BP 138/89
[2022-09-15] MEDS: MUPIROCIN CALCIUM 2% 22 GM OINTMENT NASAL SCH (16:53)
[2022-09-15] MEDS: MELATONIN 5 MG TABLET PO SCH (20:55)
[2022-09-15] MEDS: ZOLPIDEM TARTRATE 5 MG TABLET PO PRN (21:50)
[2022-09-16] MEDS: OLANZapine 5 MG RAPDIS TABLET PO PRN (00:32)
[2022-09-16] MEDS: LORazepam 2 MG TABLET PO PRN ×2 (00:33→13:07)
[2022-09-16] MEDS: MULTIVITAMINS WITH MINERALS, THERAPEUTIC TABLET PO SCH (08:40)
[2022-09-16] MEDS: AmLODIPine BESYLATE 5 MG TABLET PO SCH (08:40)
[2022-09-16] MEDS: MUPIROCIN CALCIUM 2% 22 GM OINTMENT NASAL SCH ×2 (08:41→17:04)
[2022-09-16] MEDS: FLUoxetine HCL 20 MG CAPSULE PO SCH (08:41)
[2022-09-16] MEDS: THIAMINE 100 MG TABLET PO SCH ×2 (08:41→16:08)
[2022-09-16] MEDS: FOLIC ACID 1 MG TABLET PO SCH (08:41)
[2022-09-16] MEDS: OMEGA-3/DHA/EPA/FISH OIL 1,000 MG CAPSULE PO SCH (08:41)
[2022-09-16] MEDS: NALTREXONE HCL 50 MG TABLET PO SCH (08:41)
[2022-09-16 09:22] VITALS: BP 136/77
[2022-09-16 12:15] VITALS: BP 134/69
[2022-09-16] MEDS: IBUPROFEN 600 MG TABLET PO PRN (12:15)
[2022-09-16 13:07] VITALS: BP 129/80
[2022-09-16] MEDS ORDERED: AMLO-257 PO (16:35)
[2022-09-16] MEDS ORDERED: MUPI15CR12 TP (16:36)
[2022-09-16 16:56] VITALS: BP 138/84
[2022-09-16] MEDS ORDERED: OMEG-135 PO (17:18)
[2022-09-16] MEDS ORDERED: NALT50TA PO (17:18)
[2022-09-16] MEDS ORDERED: PROZ20 PO (17:18)
[2022-09-16] MEDS ORDERED: OLAN10TA26 PO (17:18)
[2022-09-16] MEDS ORDERED: MELA5TAB40 PO (17:18)
[2022-09-16] MEDS ORDERED: MUPI1OIN5 TP (21:17)
[2022-09-16] MEDS ORDERED: AMLO5TAB66 PO (21:17)
[2022-09-17] MEDS ORDERED: DIAZEPAM 5 MG TABLET PO PRN (07:00)
[2022-09-17] MEDS ORDERED: DIAZEPAM 5 MG TABLET PO SCH (09:00)
[2022-09-18] MEDS ORDERED: DIAZEPAM 5 MG TABLET PO PRN (07:00)
[2022-09-18] MEDS ORDERED: PALIPERIDONE PALMITATE 156 MG/ML SYRINGE IM ONE (09:00)
== END 2022-09-16 18:45 | disposition home or self-care (01) | DRG 750 ==
LOC: EMS 19:56 → B3A 09-12 20:42 → 3EI 09-13 03:00
PROVIDERS: ADMIT Psychiatry & Neurology Psychiatry; ATTEND Psychiatry & Neurology Psychiatry
DX: F25.1 Schizoaffective disorder, depressive type (principal); R45.851 Suicidal ideations; K74.60 Unspecified cirrhosis of liver; Z91.14 Patient's other noncompliance with medication regimen; E11.65 Type 2 diabetes mellitus with hyperglycemia; E87.6 Hypokalemia; D72.829 Elevated white blood cell count, unspecified; S80.01XA Contusion of right knee, initial encounter; S01.512A Laceration without foreign body of oral cavity, initial encounter; F41.9 Anxiety disorder, unspecified; Z20.822 Contact with and (suspected) exposure to COVID-19; L40.9 Psoriasis, unspecified; S80.02XA Contusion of left knee, initial encounter; F10.10 Alcohol abuse, uncomplicated; I10 Essential (primary) hypertension; F12.10 Cannabis abuse, uncomplicated; Y90.9 Presence of alcohol in blood, level not specified; Z59.9 Problem related to housing and economic circumstances, unspecified; Z91.199 Patient's noncompliance with other medical treatment and regimen due to unspecified reason; Z87.891 Personal history of nicotine dependence; Z65.3 Problems related to other legal circumstances; Z55.9 Problems related to education and literacy, unspecified; Z63.8 Other specified problems related to primary support group
CPT/HCPCS: 12013; 80053; 82962; 85025; 87081; 99285; G0480; J3490; Q9967; 36415-L1; 36415-TC; 73562-TC; 80307-TC; J2426; Z7502; Z7610

== ENCOUNTER 2022-10-02 12:37 | Inpatient (IN) | payer MEDICAID, OTHER ==
[~2022-10-02] VITALS: Ht 177.8 cm; Wt 131.7 kg
[~2022-10-02 12:37] MED LIST changes: +AMLO-257 PO; +AMLO5TAB66 PO; +MUPI15CR12 TP; +MUPI1OIN5 TP
[2022-10-02] MEDS ORDERED: LOPERAMIDE HCL 2 MG CAPSULE PO PRN (14:15)
[2022-10-02] MEDS ORDERED: ACETAMINOPHEN 325 MG TABLET PO PRN (14:15)
[2022-10-02] MEDS ORDERED: MAGNESIUM HYDROXIDE SUSPENSION 30 ML UDCUP PO PRN (14:15)
[2022-10-02] MEDS ORDERED: ZOLPIDEM TARTRATE 10 MG TABLET PO PRN (14:15)
[2022-10-02] MEDS ORDERED: DIAZEPAM 10 MG TABLET PO PRN (14:15)
[2022-10-02] MEDS ORDERED: GuaiFENesin/D-METHORPHAN [SUGAR-FREE] 200-20MG/10 ML SYRUP UDCUP PO PRN (14:15)
[2022-10-02] MEDS ORDERED: OLANZapine 5 MG RAPDIS TABLET PO PRN ×2 (14:15)
[2022-10-02] MEDS ORDERED: CYANOCOBALAMIN 1,000 MCG/ML VIAL IM ONE (14:15)
[2022-10-02] MEDS ORDERED: MAG HYDROX/AL HYDROX/SIMETH ES 30 ML SUSPENSION UDCUP PO PRN (14:15)
[2022-10-02] MEDS ORDERED: PROMETHAZINE HCL 25 MG TABLET PO PRN (14:15)
[2022-10-02] MEDS ORDERED: HydrOXYzine PAMOATE 50 MG CAPSULE PO PRN (14:15)
[2022-10-02 14:21] LABS: BASOPHILS % (AUTO) 1.1 % (0.0-2.0); EOSINOPHILS % (AUTO) 6.3 % (1.0-6.0); HEMATOCRIT 41.4 % (41-53); HEMOGLOBIN 13.8 g/dL (13.5-17.5); LYMPHOCYTES # (AUTO) 1.2 K/uL (1.0-4.8); LYMPHOCYTES % (AUTO) 26.5 % (22.0-44.0); MEAN CORPUSCULAR HEMOGLOBIN 30.5 pg (26.0-34.0); MEAN CORPUSCULAR HGB CONC 33.4 G/dL (31.0-37.0); MEAN CORPUSCULAR VOLUME 91 fL (80-100); MONOCYTES # (AUTO) 0.5 K/uL (0.1-1.0); NEUTROPHILS # (AUTO) 2.6 K/uL (1.8-7.7); NEUTROPHILS % (AUTO) 56.1 % (40.0-70.0); PLATELET COUNT (AUTO) 188 K/uL (150-450); RED BLOOD CELL COUNT(AUTO) 4.53 MIL/uL (4.50-5.90); RED CELL DISTRIBUTION WIDTH 16.5 % (11.5-14.5)
[2022-10-02 14:29] LABS: ANION GAP 8 mmol/L (8-16); CALCIUM, TOTAL 8.2 mg/dL (8.8-10.5); CARBON DIOXIDE 28 mmol/L (22-29); CHLORIDE 104 mmol/L (98-107); CREATININE 0.77 mg/dL (0.60-1.30); GLOMERULAR FILTR. RATE CALC > 60 mL/min (>60); GLUCOSE,RANDOM 180 mg/dL (70-110); POTASSIUM 3.2 mmol/L (3.5-5.1); SODIUM SERUM 140 mmol/L (136-145); UREA NITROGEN, BLOOD 3 mg/dL (7-18)
[2022-10-02 14:35] LABS: ALANINE AMINOTRANSFERASE 35 U/L (12-78); ALBUMIN 3.5 g/dL (3.4-5.0); ALKALINE PHOSPHATASE 96 U/L (46-116); ASPARTATE AMINOTRANSFERASE 39 U/L (15-37); BILIRUBIN,TOTAL 0.4 mg/dL (0.1-1.0); TOTAL PROTEIN, SERUM 7.6 g/dL (6.4-8.2)
[2022-10-02 15:42] LABS: COVID AG,FIA SOURCE NASOPHARYNGEAL
[2022-10-02 16:30] VITALS: BP 123/77
[2022-10-02] MEDS: THIAMINE 100 MG TABLET PO SCH (16:50)
[2022-10-02 17:13] VITALS: BP 123/77
[2022-10-02 17:30] VITALS: BP 112/65
[2022-10-02 18:30] VITALS: BP 118/78
[2022-10-02] MEDS ORDERED: POTASSIUM CHLORIDE 20 MEQ ER TABLET PO ONE (18:45)
[2022-10-02 19:30] VITALS: BP 120/79
[2022-10-02 20:30] VITALS: BP 132/84
[2022-10-02] MEDS: OLANZapine 10 MG RAPDIS TABLET PO SCH (20:54)
[2022-10-02] MEDS: MELATONIN 5 MG TABLET PO SCH (20:55)
[2022-10-03 00:30] VITALS: BP 123/82
[2022-10-03] MEDS ORDERED: INFLUENZA VIRUS VACCINE QVS 2022-23 (6MO+)/PF 60 MCG/0.5 ML SYRINGE IM. ONE (05:30)
[2022-10-03] MEDS ORDERED: DIAZEPAM 10 MG TABLET PO PRN (07:00)
[2022-10-03 07:25] LABS: ANION GAP 6 mmol/L (8-16); CALCIUM, TOTAL 8.6 mg/dL (8.8-10.5); CARBON DIOXIDE 26 mmol/L (22-29); CHLORIDE 105 mmol/L (98-107); CREATININE 0.71 mg/dL (0.60-1.30); GLUCOSE,RANDOM 125 mg/dL (70-110); POTASSIUM 3.6 mmol/L (3.5-5.1); SODIUM SERUM 137 mmol/L (136-145); UREA NITROGEN, BLOOD 6 mg/dL (7-18)
[2022-10-03 07:28] LABS: GLOMERULAR FILTR. RATE CALC > 60 mL/min (>60)
[2022-10-03 08:30] VITALS: BP 145/84
[2022-10-03] MEDS: OMEGA-3/DHA/EPA/FISH OIL 1,000 MG CAPSULE PO SCH (08:41)
[2022-10-03] MEDS: NALTREXONE HCL 50 MG TABLET PO SCH (08:41)
[2022-10-03] MEDS: THIAMINE 100 MG TABLET PO SCH ×2 (08:41→16:12)
[2022-10-03] MEDS: MULTIVITAMINS WITH MINERALS, THERAPEUTIC TABLET PO SCH (08:42)
[2022-10-03] MEDS: DIAZEPAM 10 MG TABLET PO SCH ×4 (08:42→20:11)
[2022-10-03 08:43] VITALS: BP 154/90
[2022-10-03] MEDS: AmLODIPine BESYLATE 5 MG TABLET PO SCH (08:43)
[2022-10-03] MEDS: FLUoxetine HCL 10 MG CAPSULE PO SCH (08:43)
[2022-10-03] MEDS: FOLIC ACID 1 MG TABLET PO SCH (08:44)
[2022-10-03] MEDS ORDERED: OMEGA-3/DHA/EPA/FISH OIL 1,000 MG CAPSULE PO SCH (09:00)
[2022-10-03] MEDS: NICOTINE 21 MG/24 HOUR PATCH TD SCH (12:02)
[2022-10-03 12:30] VITALS: BP 133/70
[2022-10-03 16:30] VITALS: BP_SYST 13; BP_SYST 131; BP_DIAS 85
[2022-10-03] MEDS: OLANZapine 10 MG RAPDIS TABLET PO SCH (20:04)
[2022-10-03] MEDS: MELATONIN 5 MG TABLET PO SCH (20:05)
[2022-10-03 20:30] VITALS: BP 135/75
[2022-10-04 08:00] VITALS: BP 135/86
[2022-10-04] MEDS: FOLIC ACID 1 MG TABLET PO SCH (09:38)
[2022-10-04] MEDS: NALTREXONE HCL 50 MG TABLET PO SCH (09:38)
[2022-10-04] MEDS: OMEGA-3/DHA/EPA/FISH OIL 1,000 MG CAPSULE PO SCH (09:38)
[2022-10-04] MEDS: DIAZEPAM 10 MG TABLET PO SCH ×4 (09:38→20:27)
[2022-10-04] MEDS: MULTIVITAMINS WITH MINERALS, THERAPEUTIC TABLET PO SCH (09:38)
[2022-10-04] MEDS: AmLODIPine BESYLATE 5 MG TABLET PO SCH (09:38)
[2022-10-04] MEDS: THIAMINE 100 MG TABLET PO SCH ×2 (09:38→17:41)
[2022-10-04] MEDS: FLUoxetine HCL 10 MG CAPSULE PO SCH (09:38)
[2022-10-04] MEDS: NICOTINE 21 MG/24 HOUR PATCH TD SCH (09:40)
[2022-10-04 16:03] VITALS: BP 150/80
[2022-10-04] MEDS: OLANZapine 10 MG RAPDIS TABLET PO SCH (20:27)
[2022-10-04] MEDS: MELATONIN 5 MG TABLET PO SCH (20:28)
[2022-10-04 21:14] VITALS: BP 116/63
[2022-10-04 21:17] VITALS: BP 116/63
[2022-10-05 00:13] VITALS: BP 124/80
[2022-10-05] MEDS ORDERED: DIAZEPAM 5 MG TABLET PO PRN (07:00)
[2022-10-05] MEDS: DIAZEPAM 5 MG TABLET PO SCH ×4 (08:17→20:47)
[2022-10-05] MEDS: FLUoxetine HCL 10 MG CAPSULE PO SCH (08:17)
[2022-10-05] MEDS: AmLODIPine BESYLATE 5 MG TABLET PO SCH (08:17)
[2022-10-05] MEDS: OMEGA-3/DHA/EPA/FISH OIL 1,000 MG CAPSULE PO SCH (08:17)
[2022-10-05] MEDS: MULTIVITAMINS WITH MINERALS, THERAPEUTIC TABLET PO SCH (08:17)
[2022-10-05] MEDS: THIAMINE 100 MG TABLET PO SCH ×2 (08:17→16:24)
[2022-10-05] MEDS: FOLIC ACID 1 MG TABLET PO SCH (08:17)
[2022-10-05] MEDS: NICOTINE 21 MG/24 HOUR PATCH TD SCH (08:18)
[2022-10-05] MEDS: NALTREXONE HCL 50 MG TABLET PO SCH (08:18)
[2022-10-05] MEDS: MUPIROCIN CALCIUM 2% 22 GM OINTMENT NASAL SCH ×2 (08:18→16:24)
[2022-10-05 08:23] VITALS: BP 140/85
[2022-10-05] MEDS ORDERED: LOPERAMIDE HCL 2 MG CAPSULE PO PRN (14:15)
[2022-10-05 16:08] VITALS: BP 144/86
[2022-10-05 20:11] VITALS: BP 136/89
[2022-10-05 20:15] VITALS: BP 136/89
[2022-10-05] MEDS ORDERED: PROZ10 PO (20:44)
[2022-10-05] MEDS ORDERED: MELA5TAB40 PO (20:44)
[2022-10-05] MEDS ORDERED: OMEG-135 PO (20:44)
[2022-10-05] MEDS ORDERED: NALT50TA PO (20:44)
[2022-10-05] MEDS ORDERED: OLAN10TA26 PO (20:44)
[2022-10-05] MEDS: OLANZapine 10 MG RAPDIS TABLET PO SCH (20:47)
[2022-10-05] MEDS: MELATONIN 5 MG TABLET PO SCH (20:48)
[2022-10-06 00:20] VITALS: BP 139/87
[2022-10-06] MEDS ORDERED: DIAZEPAM 5 MG TABLET PO PRN (07:00)
[2022-10-06 08:00] VITALS: BP 140/87
[2022-10-06] MEDS ORDERED: FOLI-130 PO (08:28)
[2022-10-06 08:36] VITALS: BP 140/87
[2022-10-06] MEDS: OMEGA-3/DHA/EPA/FISH OIL 1,000 MG CAPSULE PO SCH (09:08)
[2022-10-06] MEDS: THIAMINE 100 MG TABLET PO SCH (09:08)
[2022-10-06] MEDS: FOLIC ACID 1 MG TABLET PO SCH (09:08)
[2022-10-06] MEDS: NICOTINE 21 MG/24 HOUR PATCH TD SCH (09:08)
[2022-10-06] MEDS: NALTREXONE HCL 50 MG TABLET PO SCH (09:08)
[2022-10-06] MEDS: FLUoxetine HCL 10 MG CAPSULE PO SCH (09:08)
[2022-10-06] MEDS: MULTIVITAMINS WITH MINERALS, THERAPEUTIC TABLET PO SCH (09:08)
[2022-10-06] MEDS: AmLODIPine BESYLATE 5 MG TABLET PO SCH (09:08)
[2022-10-06] MEDS: MUPIROCIN CALCIUM 2% 22 GM OINTMENT NASAL SCH (09:13)
== END 2022-10-06 11:20 | disposition home or self-care (01) | DRG 750 ==
LOC: EMS 13:13 → 3EI 16:14
PROVIDERS: ADMIT Psychiatry & Neurology Psychiatry; ATTEND Psychiatry & Neurology Psychiatry
DX: F25.0 Schizoaffective disorder, bipolar type (principal); K74.60 Unspecified cirrhosis of liver; Z91.14 Patient's other noncompliance with medication regimen; E87.6 Hypokalemia; F10.229 Alcohol dependence with intoxication, unspecified; Z20.822 Contact with and (suspected) exposure to COVID-19; F32.A Depression, unspecified; F60.0 Paranoid personality disorder; G47.00 Insomnia, unspecified; I10 Essential (primary) hypertension; K59.00 Constipation, unspecified; L40.9 Psoriasis, unspecified; Y90.7 Blood alcohol level of 200-239 mg/100 ml; Z55.9 Problems related to education and literacy, unspecified; Z59.9 Problem related to housing and economic circumstances, unspecified; Z63.9 Problem related to primary support group, unspecified; Z65.3 Problems related to other legal circumstances; Z79.899 Other long term (current) drug therapy; Z81.8 Family history of other mental and behavioral disorders; Z91.199 Patient's noncompliance with other medical treatment and regimen due to unspecified reason; Z96.649 Presence of unspecified artificial hip joint; F17.200 Nicotine dependence, unspecified, uncomplicated
CPT/HCPCS: 80048; 80053; 85025; 87081; 99285; G0480; J3420; Q9967

== ENCOUNTER 2022-11-01 22:23 | Inpatient (IN) | payer MEDICAID, OTHER ==
[~2022-11-01] VITALS: Ht 177.8 cm; Wt 136.1 kg
[~2022-11-01 22:23] MED LIST changes: -AMLO-257 PO; +FOLI-130 PO; -MUPI15CR12 TP; -MUPI1OIN5 TP; +PROZ10 PO; -PROZ20 PO
[2022-11-01 23:33] LABS: BASOPHILS % (AUTO) 1.5 % (0.0-2.0); HEMATOCRIT 42.6 % (41-53); HEMOGLOBIN 14.4 g/dL (13.5-17.5); LYMPHOCYTES # (AUTO) 0.7 K/uL (1.0-4.8); LYMPHOCYTES % (AUTO) 10.5 % (22.0-44.0); MEAN CORPUSCULAR HEMOGLOBIN 30.6 pg (26.0-34.0); MEAN CORPUSCULAR HGB CONC 33.9 G/dL (31.0-37.0); MEAN CORPUSCULAR VOLUME 90 fL (80-100); MONOCYTES # (AUTO) 0.4 K/uL (0.1-1.0); MONOCYTES % (AUTO) 6.6 % (2.0-9.0); NEUTROPHILS # (AUTO) 5.1 K/uL (1.8-7.7); NEUTROPHILS % (AUTO) 79.4 % (40.0-70.0); PLATELET COUNT (AUTO) 129 K/uL (150-450); RED BLOOD CELL COUNT(AUTO) 4.71 MIL/uL (4.50-5.90); RED CELL DISTRIBUTION WIDTH 15.2 % (11.5-14.5)
[2022-11-01 23:45] LABS: ANION GAP 11 mmol/L (8-16); CALCIUM, TOTAL 8.4 mg/dL (8.8-10.5); CARBON DIOXIDE 26 mmol/L (22-29); CHLORIDE 104 mmol/L (98-107); CREATININE 0.61 mg/dL (0.60-1.30); GLOMERULAR FILTR. RATE CALC > 60 mL/min (>60); GLUCOSE,RANDOM 108 mg/dL (70-110); POTASSIUM 3.3 mmol/L (3.5-5.1); SODIUM SERUM 141 mmol/L (136-145); UREA NITROGEN, BLOOD 2 mg/dL (7-18)
[2022-11-01 23:46] LABS: AMPHET/METH SCREEN,URINE NEGATIVE (NEGATIVE); BARBITURATE SCREEN, URINE NEGATIVE (NEGATIVE); BENZODIAZEPINES SCREEN,URINE POSITIVE (NEGATIVE); CANNABINOID SCREEN,URINE POSITIVE (NEGATIVE); COCAINE SCREEN,URINE NEGATIVE (NEGATIVE); METHADONE SCREEN, URINE NEGATIVE (NEGATIVE); OPIATE SCREEN,URINE NEGATIVE (NEGATIVE); PHENCYCLIDINE SCREEN,URINE NEGATIVE (NEGATIVE)
[2022-11-01 23:46] LABS: COVID AG,FIA SOURCE NASAL SWAB
[2022-11-01 23:51] LABS: ALANINE AMINOTRANSFERASE 30 U/L (12-78); ALBUMIN 3.7 g/dL (3.4-5.0); ALKALINE PHOSPHATASE 119 U/L (46-116); ASPARTATE AMINOTRANSFERASE 39 U/L (15-37)
[2022-11-02] VITALS (8 sets, daily range): BP systolic 122–155; BP diastolic 68–89
[2022-11-02] MEDS ORDERED: LORazepam 1 MG TABLET PO ONE (02:00)
[2022-11-02] MEDS: ZOLPIDEM TARTRATE 10 MG TABLET PO PRN ×2 (04:14→19:20)
[2022-11-02] MEDS: OLANZapine 5 MG RAPDIS TABLET PO PRN ×2 (04:14→19:23)
[2022-11-02] MEDS: LORazepam 2 MG TABLET PO PRN ×3 (04:14→17:02)
[2022-11-02] MEDS ORDERED: ACETAMINOPHEN 325 MG TABLET PO PRN ×2 (10:00→20:45)
[2022-11-02] MEDS ORDERED: INFLUENZA VIRUS VACCINE QVS 2022-23 (6MO+)/PF 60 MCG/0.5 ML SYRINGE IM. ONE (13:45)
[2022-11-02] MEDS ORDERED: PNEUMOCOCCAL VACCINE POLYVALENT 0.5 ML VIAL [PPSV23] IM. ONE (13:45)
[2022-11-02] MEDS ORDERED: POTASSIUM CHLORIDE 20 MEQ ER TABLET PO ONE (19:15)
[2022-11-02 19:51] LABS: GLUCOMETER DEV NAME(LOC) BV3N.; GLUCOSE,POINT OF CARE 127 MG/DL (70-110)
[2022-11-02] MEDS ORDERED: PROMETHAZINE HCL 25 MG TABLET PO PRN (20:45)
[2022-11-02] MEDS ORDERED: GuaiFENesin/D-METHORPHAN [SUGAR-FREE] 200-20MG/10 ML SYRUP UDCUP PO PRN (20:45)
[2022-11-02] MEDS ORDERED: MAGNESIUM HYDROXIDE SUSPENSION 30 ML UDCUP PO PRN (20:45)
[2022-11-02] MEDS ORDERED: HydrOXYzine PAMOATE 50 MG CAPSULE PO PRN (20:45)
[2022-11-02] MEDS ORDERED: MAG HYDROX/AL HYDROX/SIMETH ES 30 ML SUSPENSION UDCUP PO PRN (20:45)
[2022-11-02] MEDS ORDERED: CYANOCOBALAMIN 1,000 MCG/ML VIAL IM ONE (20:45)
[2022-11-02] MEDS ORDERED: DIAZEPAM 10 MG TABLET PO PRN (20:45)
[2022-11-02] MEDS ORDERED: LOPERAMIDE HCL 2 MG CAPSULE PO PRN ×2 (20:45)
[2022-11-02] MEDS ORDERED: OLANZapine 5 MG RAPDIS TABLET PO SCH (21:00)
[2022-11-02] MEDS: MELATONIN 5 MG TABLET PO SCH (22:06)
[2022-11-03 00:17] VITALS: BP 128/78
[2022-11-03 03:55] VITALS: BP 117/64
[2022-11-03 06:21] LABS: GLUCOMETER DEV NAME(LOC) BV3N.; GLUCOSE,POINT OF CARE 121 MG/DL (70-110)
[2022-11-03] MEDS ORDERED: DIAZEPAM 10 MG TABLET PO PRN (07:00)
[2022-11-03 07:48] LABS: BASOPHILS % (AUTO) 0.7 % (0.0-2.0); EOSINOPHILS % (AUTO) 5.5 % (1.0-6.0); HEMATOCRIT 39.4 % (41-53); HEMOGLOBIN 13.1 g/dL (13.5-17.5); LYMPHOCYTES # (AUTO) 0.6 K/uL (1.0-4.8); LYMPHOCYTES % (AUTO) 16.1 % (22.0-44.0); MEAN CORPUSCULAR HEMOGLOBIN 30.2 pg (26.0-34.0); MEAN CORPUSCULAR HGB CONC 33.2 G/dL (31.0-37.0); MEAN CORPUSCULAR VOLUME 91 fL (80-100); MONOCYTES # (AUTO) 0.4 K/uL (0.1-1.0); MONOCYTES % (AUTO) 9.2 % (2.0-9.0); NEUTROPHILS # (AUTO) 2.7 K/uL (1.8-7.7); NEUTROPHILS % (AUTO) 68.5 % (40.0-70.0); PLATELET COUNT (AUTO) 92 K/uL (150-450); RED BLOOD CELL COUNT(AUTO) 4.34 MIL/uL (4.50-5.90); RED CELL DISTRIBUTION WIDTH 14.9 % (11.5-14.5)
[2022-11-03 07:54] LABS: ANION GAP 13 mmol/L (8-16); CALCIUM, TOTAL 8.6 mg/dL (8.8-10.5); CARBON DIOXIDE 24 mmol/L (22-29); CHLORIDE 103 mmol/L (98-107); CREATININE 0.67 mg/dL (0.60-1.30); GLUCOSE,RANDOM 117 mg/dL (70-110); POTASSIUM 3.4 mmol/L (3.5-5.1); SODIUM SERUM 140 mmol/L (136-145); UREA NITROGEN, BLOOD 6 mg/dL (7-18)
[2022-11-03 07:55] LABS: GLOMERULAR FILTR. RATE CALC > 60 mL/min (>60)
[2022-11-03] MEDS: MULTIVITAMINS WITH MINERALS, THERAPEUTIC TABLET PO SCH (08:16)
[2022-11-03] MEDS: NALTREXONE HCL 50 MG TABLET PO SCH (08:16)
[2022-11-03] MEDS: FLUoxetine HCL 20 MG CAPSULE PO SCH (08:16)
[2022-11-03] MEDS: DIAZEPAM 10 MG TABLET PO SCH ×4 (08:16→20:06)
[2022-11-03] MEDS: THIAMINE 100 MG TABLET PO SCH ×2 (08:16→16:34)
[2022-11-03] MEDS: OMEGA-3/DHA/EPA/FISH OIL 1,000 MG CAPSULE PO SCH (08:16)
[2022-11-03] MEDS: AmLODIPine BESYLATE 5 MG TABLET PO SCH (08:17)
[2022-11-03] MEDS: FOLIC ACID 1 MG TABLET PO SCH (08:17)
[2022-11-03 08:39] VITALS: BP 141/83
[2022-11-03] MEDS ORDERED: FOLIC ACID 1 MG TABLET PO SCH (09:00)
[2022-11-03] MEDS ORDERED: OMEGA-3/DHA/EPA/FISH OIL 1,000 MG CAPSULE PO SCH (09:00)
[2022-11-03] MEDS ORDERED: POTASSIUM CHLORIDE 20 MEQ ER TABLET PO ONE (09:00)
[2022-11-03 13:00] VITALS: BP 110/75
[2022-11-03 14:31] LABS: GLUCOMETER DEV NAME(LOC) BV3S.; GLUCOSE,POINT OF CARE 128 MG/DL (70-110)
[2022-11-03 17:11] LABS: GLUCOMETER DEV NAME(LOC) BV3N.; GLUCOSE,POINT OF CARE 110 MG/DL (70-110)
[2022-11-03] MEDS: MELATONIN 5 MG TABLET PO SCH (20:06)
[2022-11-03] MEDS: ZOLPIDEM TARTRATE 10 MG TABLET PO PRN (20:10)
[2022-11-03 20:15] VITALS: BP 130/84
[2022-11-03] MEDS ORDERED: OLANZapine 10 MG RAPDIS TABLET PO SCH (21:00)
[2022-11-03 21:31] LABS: GLUCOMETER DEV NAME(LOC) BV3N.; GLUCOSE,POINT OF CARE 127 MG/DL (70-110)
[2022-11-04 06:32] LABS: GLUCOMETER DEV NAME(LOC) BV3N.; GLUCOSE,POINT OF CARE 124 MG/DL (70-110)
[2022-11-04 08:06] LABS: HEPATITIS C AB (EIA) <0.1 s/co ratio (0.0-0.9)
[2022-11-04] MEDS: FLUoxetine HCL 20 MG CAPSULE PO SCH (08:28)
[2022-11-04] MEDS: AmLODIPine BESYLATE 5 MG TABLET PO SCH (08:28)
[2022-11-04] MEDS: NALTREXONE HCL 50 MG TABLET PO SCH (08:28)
[2022-11-04] MEDS: MULTIVITAMINS WITH MINERALS, THERAPEUTIC TABLET PO SCH (08:29)
[2022-11-04] MEDS: OMEGA-3/DHA/EPA/FISH OIL 1,000 MG CAPSULE PO SCH (08:29)
[2022-11-04] MEDS: THIAMINE 100 MG TABLET PO SCH (08:30)
[2022-11-04] MEDS: DIAZEPAM 10 MG TABLET PO SCH ×2 (08:30→12:42)
[2022-11-04] MEDS: FOLIC ACID 1 MG TABLET PO SCH (08:31)
[2022-11-04 08:32] VITALS: BP 114/63
[2022-11-04 11:51] LABS: GLUCOMETER DEV NAME(LOC) BV3N.; GLUCOSE,POINT OF CARE 118 MG/DL (70-110)
[2022-11-04] MEDS ORDERED: DISU250T8 PO (13:55)
[2022-11-04] MEDS ORDERED: NALT50TA PO (13:55)
[2022-11-05] MEDS ORDERED: DIAZEPAM 5 MG TABLET PO PRN (07:00)
[2022-11-05] MEDS ORDERED: DIAZEPAM 5 MG TABLET PO SCH (09:00)
[2022-11-06] MEDS ORDERED: DIAZEPAM 5 MG TABLET PO PRN (07:00)
== END 2022-11-04 16:25 | disposition home or self-care (01) | DRG 750 ==
LOC: EMS 22:33 → B3A 11-02 09:34
PROVIDERS: ADMIT Psychiatry & Neurology Psychiatry; ATTEND Psychiatry & Neurology Psychiatry
DX: F25.1 Schizoaffective disorder, depressive type (principal); D69.6 Thrombocytopenia, unspecified; R45.851 Suicidal ideations; K74.60 Unspecified cirrhosis of liver; Z20.822 Contact with and (suspected) exposure to COVID-19; E66.9 Obesity, unspecified; E87.6 Hypokalemia; F10.20 Alcohol dependence, uncomplicated; F17.200 Nicotine dependence, unspecified, uncomplicated; Z96.649 Presence of unspecified artificial hip joint; G47.00 Insomnia, unspecified; I10 Essential (primary) hypertension; J44.9 Chronic obstructive pulmonary disease, unspecified; L40.9 Psoriasis, unspecified; Z59.9 Problem related to housing and economic circumstances, unspecified; Z63.9 Problem related to primary support group, unspecified; Z65.3 Problems related to other legal circumstances; Z68.41 Body mass index [BMI] 40.0-44.9, adult; Z91.14 Patient's other noncompliance with medication regimen; Z55.9 Problems related to education and literacy, unspecified
CPT/HCPCS: 71045; 80048; 80053; 80074; 80307; 82962; 84132; 85025; 87081; 90686; 99285; G0480; J3420; Q9967; 36415-L1; 36415-TC; G0008

== ENCOUNTER 2023-01-27 03:38 | Inpatient (IN) | payer MEDICAID, OTHER ==
[~2023-01-27] VITALS: Ht 177.8 cm; Wt 128.9 kg
[~2023-01-27 03:38] MED LIST changes: -AMLO5TAB66 PO; +DISU250T8 PO; -FOLI-130 PO; -MELA5TAB40 PO; -OLAN10TA26 PO; -OMEG-135 PO; -PROZ10 PO
[2023-01-27] MEDS ORDERED: FLUO10CA24 PO (03:47)
[2023-01-27 04:02] LABS: BASOPHILS % (AUTO) 2.1 % (0.0-2.0); EOSINOPHILS % (AUTO) 3.3 % (1.0-6.0); HEMATOCRIT 46.2 % (41-53); HEMOGLOBIN 15.7 g/dL (13.5-17.5); LYMPHOCYTES # (AUTO) 1.4 K/uL (1.0-4.8); LYMPHOCYTES % (AUTO) 21.8 % (22.0-44.0); MEAN CORPUSCULAR HEMOGLOBIN 31.3 pg (26.0-34.0); MEAN CORPUSCULAR HGB CONC 33.9 G/dL (31.0-37.0); MEAN CORPUSCULAR VOLUME 93 fL (80-100); MONOCYTES # (AUTO) 0.6 K/uL (0.1-1.0); MONOCYTES % (AUTO) 9.9 % (2.0-9.0); NEUTROPHILS % (AUTO) 62.9 % (40.0-70.0); PLATELET COUNT (AUTO) 182 K/uL (150-450); RED CELL DISTRIBUTION WIDTH 16.9 % (11.5-14.5)
[2023-01-27 04:10] LABS: ANION GAP 13 mmol/L (8-16); CALCIUM, TOTAL 8.6 mg/dL (8.8-10.5); CARBON DIOXIDE 26 mmol/L (22-29); CHLORIDE 104 mmol/L (98-107); CREATININE 0.66 mg/dL (0.60-1.30); GLOMERULAR FILTR. RATE CALC > 60 mL/min (>60); GLUCOSE,RANDOM 111 mg/dL (70-110); SODIUM SERUM 143 mmol/L (136-145); UREA NITROGEN, BLOOD 3 mg/dL (7-18)
[2023-01-27 04:16] LABS: ALANINE AMINOTRANSFERASE 155 U/L (12-78); ALBUMIN 3.9 g/dL (3.4-5.0); ALKALINE PHOSPHATASE 124 U/L (46-116); ASPARTATE AMINOTRANSFERASE 197 U/L (15-37); TOTAL PROTEIN, SERUM 8.5 g/dL (6.4-8.2)
[2023-01-27 04:40] LABS: COVID AG,FIA SOURCE NASOPHARYNGEAL
[2023-01-27] MEDS ORDERED: POTASSIUM CHLORIDE 20 MEQ ER TABLET PO ONE ×2 (07:00→22:15)
[2023-01-27] MEDS ORDERED: CloNIDine HCL 0.1 MG TABLET PO PRN (07:00)
[2023-01-27] MEDS ORDERED: MAGNESIUM HYDROXIDE SUSPENSION 30 ML UDCUP PO PRN (07:00)
[2023-01-27] MEDS ORDERED: ALBUTEROL SULFATE HFA 90 MCG/PUFF 8 GM INHALER IH PRN (07:00)
[2023-01-27] MEDS ORDERED: GuaiFENesin/D-METHORPHAN [SUGAR-FREE] 200-20MG/10 ML SYRUP UDCUP PO PRN (07:00)
[2023-01-27] MEDS ORDERED: MAG HYDROX/AL HYDROX/SIMETH ES 30 ML SUSPENSION UDCUP PO PRN (07:00)
[2023-01-27] MEDS ORDERED: ACETAMINOPHEN 325 MG TABLET PO PRN (07:00)
[2023-01-27] MEDS ORDERED: PETROLATUM,WHITE 28 GM JELLY TP PRN (07:00)
[2023-01-27] MEDS ORDERED: ONDANSETRON HCL 4 MG TABLET PO PRN (07:00)
[2023-01-27] MEDS ORDERED: NICOTINE 14 MG/24 HOUR PATCH TD PRN (07:00)
[2023-01-27] MEDS ORDERED: IBUPROFEN 400 MG TABLET PO PRN (07:00)
[2023-01-27] MEDS ORDERED: DOCUSATE SODIUM 100 MG CAPSULE PO PRN (07:00)
[2023-01-27] MEDS ORDERED: LOPERAMIDE HCL 2 MG CAPSULE PO PRN (07:00)
[2023-01-27] MEDS: LORazepam 2 MG TABLET PO PRN ×3 (07:51→22:15)
[2023-01-27] MEDS: HALOPERIDOL 5 MG TABLET PO PRN ×2 (07:51→22:15)
[2023-01-27] MEDS: FLUoxetine HCL 20 MG CAPSULE PO SCH (11:16)
[2023-01-27] MEDS: RisperiDONE 1 MG TABLET PO SCH ×2 (11:16→16:26)
[2023-01-27 11:21] VITALS: BP 138/90
[2023-01-27] MEDS: NALTREXONE HCL 50 MG TABLET PO SCH (11:27)
[2023-01-27 16:35] VITALS: BP 140/85
[2023-01-27 20:44] VITALS: BP 132/78
[2023-01-28 08:21] VITALS: BP 147/92
[2023-01-28] MEDS: FLUoxetine HCL 20 MG CAPSULE PO SCH (08:21)
[2023-01-28] MEDS: RisperiDONE 1 MG TABLET PO SCH ×2 (08:21→16:27)
[2023-01-28] MEDS: NALTREXONE HCL 50 MG TABLET PO SCH (08:21)
[2023-01-28] MEDS: LORazepam 2 MG TABLET PO PRN ×3 (08:21→20:22)
[2023-01-28 16:05] VITALS: BP 110/6
[2023-01-28 17:02] LABS: AMPHET/METH SCREEN,URINE NEGATIVE (NEGATIVE); BARBITURATE SCREEN, URINE NEGATIVE (NEGATIVE); BENZODIAZEPINES SCREEN,URINE NEGATIVE (NEGATIVE); CANNABINOID SCREEN,URINE POSITIVE (NEGATIVE); COCAINE SCREEN,URINE NEGATIVE (NEGATIVE); METHADONE SCREEN, URINE NEGATIVE (NEGATIVE); OPIATE SCREEN,URINE NEGATIVE (NEGATIVE); PHENCYCLIDINE SCREEN,URINE NEGATIVE (NEGATIVE)
[2023-01-28] MEDS: HALOPERIDOL 5 MG TABLET PO PRN (20:22)
[2023-01-28 20:32] VITALS: BP 125/78
[2023-01-28] MEDS: ZOLPIDEM TARTRATE 10 MG TABLET PO PRN (21:50)
[2023-01-29 08:07] VITALS: BP 143/83
[2023-01-29] MEDS: FLUoxetine HCL 20 MG CAPSULE PO SCH (08:39)
[2023-01-29] MEDS: NALTREXONE HCL 50 MG TABLET PO SCH (08:39)
[2023-01-29] MEDS: RisperiDONE 1 MG TABLET PO SCH ×2 (08:39→16:37)
[2023-01-29 08:51] LABS: ANION GAP 8 mmol/L (8-16); CALCIUM, TOTAL 8.9 mg/dL (8.8-10.5); CARBON DIOXIDE 27 mmol/L (22-29); CHLORIDE 104 mmol/L (98-107); CREATININE 0.77 mg/dL (0.60-1.30); GLOMERULAR FILTR. RATE CALC > 60 mL/min (>60); GLUCOSE,RANDOM 172 mg/dL (70-110); POTASSIUM 3.3 mmol/L (3.5-5.1); SODIUM SERUM 139 mmol/L (136-145); UREA NITROGEN, BLOOD 6 mg/dL (7-18)
[2023-01-29] MEDS ORDERED: POTASSIUM CHLORIDE 20 MEQ ER TABLET PO ONE (11:15)
[2023-01-29] MEDS: MUPIROCIN CALCIUM 2% 22 GM OINTMENT NASAL SCH ×2 (12:18→16:36)
[2023-01-29] MEDS: LORazepam 2 MG TABLET PO PRN ×3 (13:12→22:57)
[2023-01-29 16:04] VITALS: BP 121/62
[2023-01-29 20:00] VITALS: BP 129/78
[2023-01-29] MEDS: ZOLPIDEM TARTRATE 10 MG TABLET PO PRN (20:09)
[2023-01-29] MEDS: HALOPERIDOL 5 MG TABLET PO PRN (22:57)
[2023-01-30] MEDS ORDERED: PNEUMOCOCCAL VACCINE POLYVALENT 0.5 ML VIAL [PPSV23] IM. ONE (06:30)
[2023-01-30 08:17] VITALS: BP_SYST 123; BP_SYST 156; BP_DIAS 76; BP_DIAS 81
[2023-01-30] MEDS: FLUoxetine HCL 20 MG CAPSULE PO SCH (09:06)
[2023-01-30] MEDS: NALTREXONE HCL 50 MG TABLET PO SCH (09:06)
[2023-01-30] MEDS: MUPIROCIN CALCIUM 2% 22 GM OINTMENT NASAL SCH ×2 (09:06→16:35)
[2023-01-30] MEDS: RisperiDONE 1 MG TABLET PO SCH ×2 (09:06→16:34)
[2023-01-30] MEDS: LORazepam 2 MG TABLET PO PRN ×2 (12:01→18:15)
[2023-01-30 16:11] VITALS: BP 133/84
[2023-01-30 20:30] VITALS: BP 140/80
[2023-01-30] MEDS: ZOLPIDEM TARTRATE 10 MG TABLET PO PRN (22:36)
[2023-01-31] MEDS: NALTREXONE HCL 50 MG TABLET PO SCH (08:22)
[2023-01-31] MEDS: RisperiDONE 1 MG TABLET PO SCH ×2 (08:22→16:26)
[2023-01-31] MEDS: FLUoxetine HCL 20 MG CAPSULE PO SCH (08:22)
[2023-01-31] MEDS: MUPIROCIN CALCIUM 2% 22 GM OINTMENT NASAL SCH ×2 (08:33→16:26)
[2023-01-31] MEDS: LORazepam 2 MG TABLET PO PRN ×2 (12:36→21:01)
[2023-01-31 16:18] VITALS: BP 153/85
[2023-01-31] MEDS: ZOLPIDEM TARTRATE 10 MG TABLET PO PRN (20:13)
[2023-01-31 22:26] VITALS: BP 127/89
[2023-01-31] MEDS: HALOPERIDOL 5 MG TABLET PO PRN (23:50)
[2023-02-01] MEDS: NALTREXONE HCL 50 MG TABLET PO SCH (08:07)
[2023-02-01] MEDS: RisperiDONE 1 MG TABLET PO SCH (08:07)
[2023-02-01] MEDS: MUPIROCIN CALCIUM 2% 22 GM OINTMENT NASAL SCH (08:07)
[2023-02-01] MEDS: FLUoxetine HCL 20 MG CAPSULE PO SCH (08:07)
[2023-02-01 08:31] VITALS: BP 121/73
[2023-02-01 08:39] LABS: ANION GAP 10 mmol/L (8-16); CALCIUM, TOTAL 9.3 mg/dL (8.8-10.5); CARBON DIOXIDE 24 mmol/L (22-29); CHLORIDE 103 mmol/L (98-107); CREATININE 0.83 mg/dL (0.60-1.30); GLOMERULAR FILTR. RATE CALC > 60 mL/min (>60); GLUCOSE,RANDOM 142 mg/dL (70-110); POTASSIUM 3.9 mmol/L (3.5-5.1); SODIUM SERUM 137 mmol/L (136-145); UREA NITROGEN, BLOOD 8 mg/dL (7-18)
[2023-02-01] MEDS ORDERED: NALT50TA PO (11:53)
[2023-02-01] MEDS ORDERED: RISP1TAB98 PO (11:53)
[2023-02-01] MEDS ORDERED: FLUO20CA36 PO (11:53)
== END 2023-02-01 16:18 | disposition home or self-care (01) | DRG 750 ==
LOC: EMS 03:40 → 3EC 05:00
PROVIDERS: ADMIT Psychiatry & Neurology Child & Adolescent Psychiatry; ATTEND Psychiatry & Neurology Child & Adolescent Psychiatry
DX: F25.1 Schizoaffective disorder, depressive type (principal); R45.851 Suicidal ideations; E87.6 Hypokalemia; Z20.822 Contact with and (suspected) exposure to COVID-19; I10 Essential (primary) hypertension; F17.210 Nicotine dependence, cigarettes, uncomplicated; R19.7 Diarrhea, unspecified; F10.10 Alcohol abuse, uncomplicated; Z82.49 Family history of ischemic heart disease and other diseases of the circulatory system; Z83.3 Family history of diabetes mellitus; F41.9 Anxiety disorder, unspecified; L40.9 Psoriasis, unspecified
CPT/HCPCS: 80048; 80053; 80307; 83036; 85025; 87081; 99285; G0480

== ENCOUNTER 2023-02-11 23:06 | Inpatient (IN) | payer MEDICAID, OTHER ==
[~2023-02-11] VITALS: Ht 177.8 cm; Wt 132.9 kg
[~2023-02-11 23:06] MED LIST changes: -DISU250T8 PO; +FLUO20CA36 PO; +RISP1TAB98 PO
[2023-02-11 23:59] LABS: COVID AG,FIA SOURCE NASAL SWAB
[2023-02-12] VITALS (10 sets, daily range): BP systolic 119–158; BP diastolic 63–99
[2023-02-12 00:01] LABS: BASOPHILS % (AUTO) 3.1 % (0.0-2.0); EOSINOPHILS % (AUTO) 1.3 % (1.0-6.0); HEMATOCRIT 45.1 % (41-53); HEMOGLOBIN 15.3 g/dL (13.5-17.5); LYMPHOCYTES # (AUTO) 1.6 K/uL (1.0-4.8); LYMPHOCYTES % (AUTO) 20.6 % (22.0-44.0); MEAN CORPUSCULAR HEMOGLOBIN 31.4 pg (26.0-34.0); MEAN CORPUSCULAR HGB CONC 34.1 G/dL (31.0-37.0); MEAN CORPUSCULAR VOLUME 92 fL (80-100); MONOCYTES # (AUTO) 0.6 K/uL (0.1-1.0); NEUTROPHILS # (AUTO) 5.3 K/uL (1.8-7.7); PLATELET COUNT (AUTO) 167 K/uL (150-450); RED BLOOD CELL COUNT(AUTO) 4.89 MIL/uL (4.50-5.90); RED CELL DISTRIBUTION WIDTH 17.1 % (11.5-14.5)
[2023-02-12 00:09] LABS: AMPHET/METH SCREEN,URINE NEGATIVE (NEGATIVE); BARBITURATE SCREEN, URINE NEGATIVE (NEGATIVE); BENZODIAZEPINES SCREEN,URINE NEGATIVE (NEGATIVE); CANNABINOID SCREEN,URINE POSITIVE (NEGATIVE); COCAINE SCREEN,URINE NEGATIVE (NEGATIVE); METHADONE SCREEN, URINE NEGATIVE (NEGATIVE); OPIATE SCREEN,URINE NEGATIVE (NEGATIVE); PHENCYCLIDINE SCREEN,URINE NEGATIVE (NEGATIVE)
[2023-02-12 00:16] LABS: ANION GAP 11 mmol/L (8-16); CALCIUM, TOTAL 8.8 mg/dL (8.8-10.5); CARBON DIOXIDE 26 mmol/L (22-29); CHLORIDE 105 mmol/L (98-107); CREATININE 0.67 mg/dL (0.60-1.30); GLOMERULAR FILTR. RATE CALC > 60 mL/min (>60); GLUCOSE,RANDOM 175 mg/dL (70-110); POTASSIUM 3.1 mmol/L (3.5-5.1); SODIUM SERUM 142 mmol/L (136-145); UREA NITROGEN, BLOOD 4 mg/dL (7-18)
[2023-02-12 00:21] LABS: ALANINE AMINOTRANSFERASE 73 U/L (12-78); ALBUMIN 3.8 g/dL (3.4-5.0); ALKALINE PHOSPHATASE 113 U/L (46-116); ASPARTATE AMINOTRANSFERASE 72 U/L (15-37); BILIRUBIN,TOTAL 0.9 mg/dL (0.1-1.0); TOTAL PROTEIN, SERUM 7.9 g/dL (6.4-8.2)
[2023-02-12] MEDS ORDERED: HALOPERIDOL 5 MG TABLET PO PRN (01:45)
[2023-02-12] MEDS ORDERED: LORazepam 2 MG TABLET PO PRN (01:45)
[2023-02-12] MEDS ORDERED: ZOLPIDEM TARTRATE 10 MG TABLET PO PRN (01:45)
[2023-02-12] MEDS ORDERED: POTASSIUM CHLORIDE 20 MEQ ER TABLET PO ONE (02:00)
[2023-02-12 02:42] LABS: APPEARANCE,URINE CLEAR (CLEAR); BILIRUBIN,URINE NEGATIVE (NEGATIVE); GLUCOSE, URINE (UA) NEGATIVE (NEGATIVE); KETONES,URINE NEGATIVE (NEGATIVE); OCCULT BLOOD,URINE NEGATIVE (NEGATIVE); PH,URINE 7.5 (5.0-8.0); PROTEIN,URINE NEGATIVE (NEGATIVE)
[2023-02-12 02:43] LABS: LEUKOCYTE ESTERASE ,URINE NEGATIVE (NEGATIVE); NITRATE,URINE NEGATIVE (NEGATIVE); UROBILINOGEN,URINE <=1.0 mg/dL (<=1.0)
[2023-02-12] MEDS: HALOPERIDOL 5 MG TABLET PO PRN ×3 (03:53→20:33)
[2023-02-12] MEDS: LORazepam 2 MG TABLET PO PRN ×4 (03:53→20:33)
[2023-02-12] MEDS ORDERED: LOPERAMIDE HCL 2 MG CAPSULE PO PRN (06:00)
[2023-02-12] MEDS ORDERED: ONDANSETRON HCL 4 MG TABLET PO PRN (06:00)
[2023-02-12] MEDS ORDERED: PETROLATUM,WHITE 28 GM JELLY TP PRN (06:00)
[2023-02-12] MEDS ORDERED: DOCUSATE SODIUM 100 MG CAPSULE PO PRN (06:00)
[2023-02-12] MEDS ORDERED: BACITRACIN 28 GM OINTMENT TP PRN (06:00)
[2023-02-12] MEDS ORDERED: OMEPRAZOLE 20 MG CAPSULE PO PRN (06:00)
[2023-02-12] MEDS ORDERED: BENZOCAINE/MENTHOL LOZENGE PO PRN (06:00)
[2023-02-12] MEDS ORDERED: ACETAMINOPHEN 325 MG TABLET PO PRN (06:00)
[2023-02-12] MEDS ORDERED: MAGNESIUM HYDROXIDE SUSPENSION 30 ML UDCUP PO PRN (06:00)
[2023-02-12] MEDS ORDERED: ALBUTEROL SULFATE HFA 90 MCG/PUFF 8 GM INHALER IH PRN (06:00)
[2023-02-12] MEDS ORDERED: IBUPROFEN 600 MG TABLET PO PRN (06:00)
[2023-02-12] MEDS ORDERED: CloNIDine HCL 0.1 MG TABLET PO PRN (06:00)
[2023-02-12] MEDS ORDERED: MAG HYDROX/AL HYDROX/SIMETH ES 30 ML SUSPENSION UDCUP PO PRN (06:00)
[2023-02-12] MEDS: FLUOCINONIDE 0.05% 15 GM CREAM TP SCH ×2 (08:24→16:58)
[2023-02-12] MEDS: RisperiDONE 1 MG TABLET PO SCH (16:58)
[2023-02-12] MEDS: ZOLPIDEM TARTRATE 10 MG TABLET PO PRN (21:26)
[2023-02-13 03:30] VITALS: BP 139/80
[2023-02-13 07:42] LABS: HEMOGLOBIN A1C 5.5 % (3.8-5.6)
[2023-02-13 07:51] LABS: ANION GAP 8 mmol/L (8-16); CALCIUM, TOTAL 8.6 mg/dL (8.8-10.5); CARBON DIOXIDE 27 mmol/L (22-29); CHLORIDE 104 mmol/L (98-107); CHOL/HDL RATIO 4.5 (4.2-7.3); CHOLESTEROL 156 mg/dL (131-200); CREATININE 0.64 mg/dL (0.60-1.30); GLOMERULAR FILTR. RATE CALC > 60 mL/min (>60); GLUCOSE,RANDOM 122 mg/dL (70-110); HDL CHOLESTEROL 35 mg/dL (40-60); LDL CHOL (CALC.) 82 mg/dL (0-130); POTASSIUM 3.2 mmol/L (3.5-5.1); SODIUM SERUM 139 mmol/L (136-145); THYROID STIMULATING HORMONE 3.63 uIU/mL (0.36-3.74); TRIGLYCERIDES 197 mg/dL (15-150); UREA NITROGEN, BLOOD 5 mg/dL (7-18)
[2023-02-13 08:06] VITALS: BP 119/73
[2023-02-13] MEDS: FLUoxetine HCL 20 MG CAPSULE PO SCH (08:19)
[2023-02-13] MEDS: RisperiDONE 1 MG TABLET PO SCH ×2 (08:19→16:28)
[2023-02-13] MEDS: FLUOCINONIDE 0.05% 15 GM CREAM TP SCH ×2 (08:20→16:29)
[2023-02-13 08:38] VITALS: BP 119/73
[2023-02-13] MEDS: LORazepam 2 MG TABLET PO PRN ×2 (11:45→16:28)
[2023-02-13 20:00] VITALS: BP 139/88
[2023-02-13 20:24] VITALS: BP 139/88
[2023-02-13] MEDS: ZOLPIDEM TARTRATE 10 MG TABLET PO PRN (20:56)
[2023-02-14] MEDS: HALOPERIDOL 5 MG TABLET PO PRN (05:29)
[2023-02-14] MEDS: LORazepam 2 MG TABLET PO PRN (05:29)
[2023-02-14 08:04] VITALS: BP_SYST 141; BP_SYST 147; BP_DIAS 91; BP_DIAS 97
[2023-02-14] MEDS: FLUOCINONIDE 0.05% 15 GM CREAM TP SCH ×2 (08:29→08:37)
[2023-02-14] MEDS: RisperiDONE 1 MG TABLET PO SCH (08:29)
[2023-02-14] MEDS: FLUoxetine HCL 20 MG CAPSULE PO SCH (08:29)
[2023-02-14] MEDS ORDERED: RISP1TAB98 PO (09:54)
[2023-02-14] MEDS ORDERED: FLUO20CA36 PO (09:54)
== END 2023-02-14 13:25 | disposition home or self-care (01) | DRG 750 ==
LOC: EMS 23:08 → B3A 02-12 02:01
PROVIDERS: ADMIT Psychiatry & Neurology Psychiatry; ATTEND Psychiatry & Neurology Psychiatry
DX: F25.1 Schizoaffective disorder, depressive type (principal); R45.851 Suicidal ideations; K70.30 Alcoholic cirrhosis of liver without ascites; Z91.199 Patient's noncompliance with other medical treatment and regimen due to unspecified reason; F10.10 Alcohol abuse, uncomplicated; F41.9 Anxiety disorder, unspecified; Z96.649 Presence of unspecified artificial hip joint; Y90.8 Blood alcohol level of 240 mg/100 ml or more; K59.00 Constipation, unspecified; E66.9 Obesity, unspecified; G47.00 Insomnia, unspecified; Z20.822 Contact with and (suspected) exposure to COVID-19; K21.9 Gastro-esophageal reflux disease without esophagitis; L40.9 Psoriasis, unspecified; E66.01 Morbid (severe) obesity due to excess calories; E87.6 Hypokalemia; F12.10 Cannabis abuse, uncomplicated; Z79.899 Other long term (current) drug therapy; Z87.891 Personal history of nicotine dependence; Z68.41 Body mass index [BMI] 40.0-44.9, adult
CPT/HCPCS: 80048; 80053; 80061; 80307; 81003; 83036; 84443; 85025; 87081; 99285; G0480

== ENCOUNTER 2023-05-09 20:26 | Inpatient (IN) | payer MEDICAID, OTHER ==
[~2023-05-09] VITALS: Ht 177.8 cm; Wt 128.8 kg
[~2023-05-09 20:26] MED LIST changes: -NALT50TA PO
[2023-05-09 21:15] LABS: EOSINOPHILS % (AUTO) 2.3 % (1.0-6.0); HEMATOCRIT 48.1 % (41-53); HEMOGLOBIN 15.8 g/dL (13.5-17.5); LYMPHOCYTES # (AUTO) 0.8 K/uL (1.0-4.8); LYMPHOCYTES % (AUTO) 15.2 % (22.0-44.0); MEAN CORPUSCULAR HEMOGLOBIN 31.4 pg (26.0-34.0); MEAN CORPUSCULAR VOLUME 95 fL (80-100); MONOCYTES # (AUTO) 0.5 K/uL (0.1-1.0); MONOCYTES % (AUTO) 10.5 % (2.0-9.0); NEUTROPHILS # (AUTO) 3.7 K/uL (1.8-7.7); PLATELET COUNT (AUTO) 164 K/uL (150-450); RED BLOOD CELL COUNT(AUTO) 5.04 MIL/uL (4.50-5.90); RED CELL DISTRIBUTION WIDTH 14.7 % (11.5-14.5)
[2023-05-09] MEDS ORDERED: RisperiDONE 1 MG TABLET PO ONE (21:15)
[2023-05-09] MEDS ORDERED: LORazepam 1 MG TABLET PO ONE (21:15)
[2023-05-09 21:29] LABS: COVID AG,FIA SOURCE NASOPHARYNGEAL
[2023-05-09 21:32] LABS: ALKALINE PHOSPHATASE 123 U/L (46-116); ANION GAP 19 mmol/L (8-16); BILIRUBIN,TOTAL 1.4 mg/dL (0.1-1.0); CALCIUM, TOTAL 8.7 mg/dL (8.8-10.5); CARBON DIOXIDE 23 mmol/L (22-29); CHLORIDE 98 mmol/L (98-107); CREATININE 0.66 mg/dL (0.60-1.30); GLOMERULAR FILTR. RATE CALC > 60 mL/min (>60); GLUCOSE,RANDOM 160 mg/dL (70-110); SODIUM SERUM 140 mmol/L (136-145)
[2023-05-09 21:33] LABS: ALANINE AMINOTRANSFERASE 145 U/L (12-78); ALBUMIN 4.1 g/dL (3.4-5.0); ASPARTATE AMINOTRANSFERASE 161 U/L (15-37); TOTAL PROTEIN, SERUM 8.1 g/dL (6.4-8.2)
[2023-05-09 21:39] LABS: POTASSIUM 2.8 mmol/L (3.5-5.1)
[2023-05-09] MEDS ORDERED: POTASSIUM CHLORIDE 20 MEQ ER TABLET PO ONE (21:45)
[2023-05-09 22:17] LABS: AMPHET/METH SCREEN,URINE NEGATIVE (NEGATIVE); BARBITURATE SCREEN, URINE NEGATIVE (NEGATIVE); BENZODIAZEPINES SCREEN,URINE NEGATIVE (NEGATIVE); CANNABINOID SCREEN,URINE POSITIVE (NEGATIVE); COCAINE SCREEN,URINE NEGATIVE (NEGATIVE); METHADONE SCREEN, URINE NEGATIVE (NEGATIVE); OPIATE SCREEN,URINE NEGATIVE (NEGATIVE); PHENCYCLIDINE SCREEN,URINE NEGATIVE (NEGATIVE)
[2023-05-09] MEDS ORDERED: HALOPERIDOL 5 MG TABLET PO PRN (23:00)
[2023-05-09] MEDS ORDERED: ZOLPIDEM TARTRATE 10 MG TABLET PO PRN (23:00)
[2023-05-10] VITALS (11 sets, daily range): BP systolic 121–166; BP diastolic 73–99; PULSE 72–102; RESP 16–20; TEMP 97.7–98; O2SAT 95–99
[2023-05-10 01:26] LABS: APPEARANCE,URINE HAZY (CLEAR); BILIRUBIN,URINE NEGATIVE (NEGATIVE); GLUCOSE, URINE (UA) 70-100 mg/dL (NEGATIVE); KETONES,URINE NEGATIVE (NEGATIVE); LEUKOCYTE ESTERASE ,URINE NEGATIVE (NEGATIVE); NITRATE,URINE NEGATIVE (NEGATIVE); OCCULT BLOOD,URINE NEGATIVE (NEGATIVE); PROTEIN,URINE 30-70 mg/dL (NEGATIVE); SPECIFIC GRAVITIY, URINE 1.016 (1.003-1.030)
[2023-05-10 01:29] LABS: ANION GAP 12 mmol/L (8-16); CALCIUM, TOTAL 8.8 mg/dL (8.8-10.5); CARBON DIOXIDE 26 mmol/L (22-29); CHLORIDE 98 mmol/L (98-107); CREATININE 0.67 mg/dL (0.60-1.30); GLOMERULAR FILTR. RATE CALC > 60 mL/min (>60); GLUCOSE,RANDOM 130 mg/dL (70-110); POTASSIUM 3.2 mmol/L (3.5-5.1); SODIUM SERUM 136 mmol/L (136-145)
[2023-05-10 02:02] LABS: BACTERIA,URINE Rare /HPF (None Seen); CALCIUM OXALATE CRYSTALS,UR Few /LPF (None Seen); RBC,URINE 0-2 /HPF (0-2); SQUAMOUS EPITHELIAL CELL,UR Few /LPF (None Seen); WBC,URINE None Seen /HPF (0-5)
[2023-05-10] MEDS: LORazepam 2 MG TABLET PO PRN ×3 (03:57→18:38)
[2023-05-10] MEDS ORDERED: DOCUSATE SODIUM 100 MG CAPSULE PO PRN (05:45)
[2023-05-10] MEDS ORDERED: MAGNESIUM HYDROXIDE SUSPENSION 30 ML UDCUP PO PRN (05:45)
[2023-05-10] MEDS ORDERED: IBUPROFEN 600 MG TABLET PO PRN (05:45)
[2023-05-10] MEDS ORDERED: ACETAMINOPHEN 325 MG TABLET PO PRN (05:45)
[2023-05-10] MEDS ORDERED: ONDANSETRON HCL 4 MG TABLET PO PRN (05:45)
[2023-05-10] MEDS ORDERED: MAG HYDROX/AL HYDROX/SIMETH ES 30 ML SUSPENSION UDCUP PO PRN (05:45)
[2023-05-10] MEDS ORDERED: POTASSIUM CHLORIDE 20 MEQ ER TABLET PO ONE (05:45)
[2023-05-10] MEDS ORDERED: CloNIDine HCL 0.1 MG TABLET PO PRN (05:45)
[2023-05-10] MEDS ORDERED: BENZOCAINE/MENTHOL LOZENGE PO PRN (05:45)
[2023-05-10] MEDS ORDERED: PETROLATUM,WHITE 28 GM JELLY TP PRN (05:45)
[2023-05-10] MEDS ORDERED: LOPERAMIDE HCL 2 MG CAPSULE PO PRN (05:45)
[2023-05-10] MEDS ORDERED: OMEPRAZOLE 20 MG CAPSULE PO PRN (05:45)
[2023-05-10] MEDS ORDERED: BACITRACIN 28 GM OINTMENT TP PRN (05:45)
[2023-05-10] MEDS ORDERED: ALBUTEROL SULFATE HFA 90 MCG/PUFF 8 GM INHALER IH PRN (05:45)
[2023-05-10] MEDS: RisperiDONE 1 MG TABLET PO SCH (16:16)
[2023-05-10] MEDS: DIVALPROEX SODIUM 500 MG DR TABLET PO SCH (16:16)
[2023-05-11 02:30] VITALS: BP 128/78; PULSE 88; RESP 18; TEMP 98.2; O2SAT 96
[2023-05-11 03:35] VITALS: BP 128/78; PULSE 92; RESP 18; TEMP 98; O2SAT 96
[2023-05-11 08:34] LABS: HEMOGLOBIN A1C 5.2 % (3.8-5.6)
[2023-05-11 08:36] VITALS: BP 141/99; PULSE 98; RESP 18; TEMP 97.8; O2SAT 96
[2023-05-11] MEDS: DIVALPROEX SODIUM 500 MG DR TABLET PO SCH (08:36)
[2023-05-11] MEDS: RisperiDONE 1 MG TABLET PO SCH (08:36)
[2023-05-11 08:47] LABS: ALANINE AMINOTRANSFERASE 99 U/L (12-78); ALBUMIN 3.7 g/dL (3.4-5.0); ALKALINE PHOSPHATASE 116 U/L (46-116); ANION GAP 12 mmol/L (8-16); ASPARTATE AMINOTRANSFERASE 96 U/L (15-37); BILIRUBIN,TOTAL 3.7 mg/dL (0.1-1.0); CARBON DIOXIDE 24 mmol/L (22-29); CHLORIDE 100 mmol/L (98-107); CHOL/HDL RATIO 5.1 (4.2-7.3); CHOLESTEROL 152 mg/dL (131-200); CREATININE 0.54 mg/dL (0.60-1.30); GLOMERULAR FILTR. RATE CALC > 60 mL/min (>60); GLUCOSE,RANDOM 120 mg/dL (70-110); HDL CHOLESTEROL 30 mg/dL (40-60); LDL CHOL (CALC.) 83 mg/dL (0-130); POTASSIUM 3.1 mmol/L (3.5-5.1); SODIUM SERUM 136 mmol/L (136-145); THYROID STIMULATING HORMONE 7.37 uIU/mL (0.36-3.74); TOTAL PROTEIN, SERUM 7.6 g/dL (6.4-8.2); TRIGLYCERIDES 194 mg/dL (15-150)
[2023-05-11 10:35] VITALS: BP 123/78; PULSE 103; RESP 18
[2023-05-11] MEDS ORDERED: RISP1TAB98 PO (15:13)
[2023-05-11] MEDS ORDERED: DIVA-112 PO (15:13)
== END 2023-05-11 17:36 | disposition home or self-care (01) | DRG 750 ==
LOC: EMS 20:27 → B2S 05-10 01:48
PROVIDERS: ADMIT Psychiatry & Neurology Psychiatry; ATTEND Psychiatry & Neurology Psychiatry
DX: F25.1 Schizoaffective disorder, depressive type (principal); R45.851 Suicidal ideations; K70.30 Alcoholic cirrhosis of liver without ascites; E66.01 Morbid (severe) obesity due to excess calories; E87.6 Hypokalemia; F10.10 Alcohol abuse, uncomplicated; F41.9 Anxiety disorder, unspecified; K21.9 Gastro-esophageal reflux disease without esophagitis; L40.9 Psoriasis, unspecified; K59.00 Constipation, unspecified; I10 Essential (primary) hypertension; F12.10 Cannabis abuse, uncomplicated; G47.00 Insomnia, unspecified; F17.210 Nicotine dependence, cigarettes, uncomplicated; Z96.649 Presence of unspecified artificial hip joint; Z68.41 Body mass index [BMI] 40.0-44.9, adult
CPT/HCPCS: 80048; 80053; 80061; 80307; 81001; 81003; 83036; 84443; 85025; 99285; G0480